=== PATIENT | female | born 1985 | race African-American/Black ===

== ENCOUNTER 2023-06-18 18:35 | Emergency (ER) | payer OTHER, SELFPAY ==
--- NOTE | ~2023-06-18 | US_ITS ---
EXAMINATION: US PELVIS COMPLETE US PELVIS ENDOVAGINAL CLINICAL INFORMATION: Pelvic pain right greater than left COMPARISON: None. TECHNIQUE: Transabdominal and transvaginal images of the pelvis were obtained. FINDINGS: UTERUS: Retroverted and retroflexed Normal size and contour, measuring 7.3 x 3.2 x 4.5 cm (cervix to fundus x AP x transverse). Uniform, homogeneous endometrium measures 0.2 cm in width. RIGHT OVARY: Normal size and echogenicity measuring 2.6 x 1.5 x 2.3 cm, volume 4.7 mL. Vascular flow noted in the right ovary. Multiple follicles noted in the right ovary. LEFT OVARY: Normal size and echogenicity measuring 2.4 x 2.1 x 2.4 cm, volume 6.3 mL. Vascular flow noted in the left ovary. Multiple follicles noted in the left ovary. FREE FLUID: No pelvic free fluid. US/US pelvic and transvaginal IMPRESSION: 1. Bilateral ovarian vascular flow identified. 2. Bilateral ovarian follicles noted.
--- NOTE | ~2023-06-18 | CT_ITS ---
EXAMINATION: CT ABDOMEN AND PELVIS WITHOUT CONTRAST CLINICAL INFORMATION: Right flank pain. COMPARISON: None available. TECHNIQUE: Multidetector volumetric imaging was performed from the superior aspect of the liver through the pubic symphysis. Sagittal and coronal reformatted images were obtained on the technologist's workstation. This CT examination was performed using dose optimization techniques as appropriate, variously including the following: *Automated exposure control *Adjustment of mA and/or kV according to patient size (this includes techniques or standardized protocols for targeted exams where dose is matched to indication/reason for exam; i.e. extremities or head) *Use of iterative reconstruction technique DLP: 490 mGy-cm FINDINGS: LUNG BASES: Minimal dependent atelectasis. LIVER, GALLBLADDER, AND BILIARY TREE: The liver is normal in size, shape, and attenuation. No focal hepatic lesion or biliary ductal dilatation is present. The gallbladder is unremarkable with no evidence of radiopaque gallstones, gallbladder wall thickening, or obvious pericholecystic inflammatory changes. PANCREAS: Unremarkable. SPLEEN: Unremarkable. ADRENAL GLANDS: Unremarkable. KIDNEYS AND URETERS: The kidneys are normal in size. Lobular contours are likely due to lobulation. Multiple parenchymal calcifications in the region of the renal pyramids which raise the possibility of early medullary nephrocalcinosis. A 2 mm nonobstructing calculus is present within the left upper renal pole. A 8 mm cyst is suspected in the anterior cortex of the interpolar region of the right kidney which is too small to characterize. No hydronephrosis or hydroureter. No perinephric stranding. BLADDER: Unremarkable. GASTROINTESTINAL TRACT: Stomach, small bowel, and colon are normal in caliber. There is wall thickening and pericolonic fat stranding at the ascending colon, concerning for colitis. No evidence of perforation. No pneumatosis or intraperitoneal free fluid. The transverse, descending, sigmoid colon are normal in appearance. Appendix appears normal. ABDOMINAL WALL: No hernias. Scar tissue from prior surgeries are noted in the anterior abdominal wall LYMPH NODES: Normal. VASCULAR: Unremarkable. PELVIC VISCERA: The uterus and adnexa are unremarkable. OSSEOUS STRUCTURES: Minimal osteoarthritis in the hips and SI joints. No acute osseous findings. CT/CT abdomen pelvis wo IV con IMPRESSION: 1. Wall thickening and pericolonic fat stranding at the ascending colon, concerning for an acute focal colitis. 2. Numerous small, calcifications of the renal pyramids raising the possibility of early medullary nephrocalcinosis. Nonobstructing renal calculi are also suspected, measuring up to 2 mm in diameter. No evidence of obstructive uropathy. Fleischner guidelines were followed.
[2023-06-18 19:01] VITALS: BP 120/73; PULSE 82; RESP 16; TEMP 36.9; O2SAT 100; BMI 28.3
[2023-06-18 19:25] LABS: MANUAL DIFF FLAG NO
[2023-06-18 19:27] LABS: Basophils Percent Auto 0.4 % (0-2); Eosinophils Absolute Auto 0.4 X10*3/uL (0.0-0.4); Eosinophils Percent Auto 4.4 % (0-4); Hematocrit 39.3 % (37.0-47.0); Hemoglobin 13.2 g/dl (12.0-16.0); Imm Gran Abs Auto 0.02 X10*3/uL (0.00-0.03); Imm Gran Pct Auto 0.2 % (0.0-0.4); Lymphocytes Absolute Auto 1.6 X10*3/uL (1.2-4.9); Lymphocytes Percent Auto 19.9 % (20-40); Mean Corpuscular HGB Conc 33.6 g/dl (31.0-35.0); Mean Corpuscular Hemoglobin 31.1 pg (27.0-33.0); Mean Corpuscular Volume 92.5 fL (80.0-98.0); Mean Platelet Volume 9.7 fL (9.4-12.3); Monocytes Absolute Auto 1.1 X10*3/uL (0.1-1.2); Monocytes Percent Auto 12.9 % (2-11); Neutrophils Absolute Auto 5.1 x10*3/uL (2.0-8.3); Neutrophils Percent Auto 62.2 % (45-73); Platelet Count 297 X10*3/uL (160-400); Red Blood Count 4.25 X10*6/uL (4.20-5.50); Red Cell Distribution Width 12.6 % (11.0-16.0); SCAN SMEAR FLAG 1; White Blood Count 8.2 X10*3/uL (4.8-10.8)
[2023-06-18 19:40] LABS: Alanine Aminotransferase 13 U/L (0-31); Albumin Level 3.9 g/dL (3.5-5.0); Alkaline Phosphatase 63 U/L (39-117); Anion Gap 11 (12-20); Aspartate Amino Transferase 21 U/L (5-31); Bilirubin Total 0.2 mg/dL (0.0-1.0); Blood Urea Nitrogen 10 mg/dL (9-16); Calcium 8.8 mg/dL (8.4-10.2); Carbon Dioxide 24 mmol/L (22-29); Chloride 108 mmol/L (96-108); Creatinine Clr Calc Pharmacy 80.7; Estimated Glomerular Filt Rate > 60; Glucose Random 63 mg/dL (60-115); Lipase 75 U/L (8-78); Potassium 4.4 mmol/L (3.3-5.1); Sodium 139 mmol/L (135-145); Total Protein 7.4 g/dL (6.5-8.0)
[2023-06-18 20:37] LABS: Appearance Urine Clear; Color Urine Yellow; Glucose Urine UA Negative (Negative); Leukocyte Esterase Urine Negative (Negative); Nitrite Urine Negative (Negative); UMIC TRIGGER UACC YES; Urine Blood Moderate (2+) (Negative); Urine Ketones Negative (Negative); Urine Protein Negative (Neg-Trace)
[2023-06-18 20:39] LABS: Bacteria Urine None Seen (None Seen); Hyaline Casts Urine 0-2 /LPF (0-2); Squamous Epithelial Cell Urine 0-2 /HPF (0-2); WBC Urine 0-5 /HPF (0-5)
--- NOTE | 2023-06-18 20:44 | ED_ITS ---
HPI - Abdominal Pain General Chief Complaint: Abdominal Pain Stated Complaint: abdominal pain Time Seen by Provider: 06/18/23 20:40 Source: patient Mode of arrival: ambulatory Limitations: no limitations History of Present Illness HPI narrative: 37 yo female with PMH of , kidney stones, appendectomy notes lower abdominal pain x 2 days with dysuria. She does not get her menses regularly due to implanon. She denies fevers or discharge. She notes this is very different from her kidney stone pain. MD elicited complaint: abdominal pain Pertinent past history: none Onset (ago): day(s) (2) Pain Consistency: intermittent Location: suprapubic Severity: moderate Quality: cramping Radiation: none Migration to: no migration Exacerbating factors: nothing Relieving factors: nothing Associated symptoms: nausea and chills Related Data Previous Rx's Medication Instructions Recorded morphine 15 mg immediate release 15 mg PO TID PRN pain #10 tabs 06/19/23 tablet ondansetron 4 mg disintegrating 4 mg PO Q8H PRN nausea and 06/19/23 tablet vomiting #20 tabs Allergies Allergy/AdvReac Type Severity Reaction Status Date / Time ibuprofen Allergy Unknown Verified 06/18/23 19:01 tramadol Allergy Unknown Verified 06/18/23 19:01 Review of Systems Review of Systems Constitutional : No Weight loss, No Fever, No Chills ENT/Mouth : No sore throat, No Rhinorrhea Eyes: No Swelling, No Redness Cardiovascular : No Chest Pain, No SOB, NoEdema Respiratory : No Cough, No Sputum, No Wheezing Gastrointestinal : Positive Nausea, no Vomiting, no Diarrhea, positive abdominal Pain, No Hematochezia, No Melena Genitourinary : pos Dysuria, No Urinary Frequency, No Hematuria, No Urgency Musculoskeletal : No joint pain, No Myalgias, No Joint Swelling Skin : No Skin Lesions, No rash Neuro : No Weakness, No Numbness, No Dizziness, No Headache Psych : No Anxiety/Panic, No Depression Heme/Lymph: No Bruising, No Lymphadenopathy Endocrine : No Polyuria, No Polydipsia All other systems reviewed and are negative. [facility] Past Medical History Attestation statement: The following information was validated with the patient. Medical History Kidney stones Social History Social History (Updated 06/18/23 @ 22:04 by Emmie Lucas DO) Patient Tobacco Use Status: Never used Tobacco Smoked in Last 30 Days: No Use of substances other than those prescribed or required for medical reasons: No Advance Directives: No Advance Directives Information Provided: No Patient : No Physical Exam ED Vital Signs: Vital Signs - 24 hr 06/18/23 19:01 06/18/23 23:29 Temperature 98.5 F 98.1 F Pulse Rate 82 74 Respiratory Rate 16 18 Blood Pressure 120/73 105/54 L Pulse Oximetry 100 99 Oxygen Delivery Method Room Air Room Air BMI result Body Mass Index 28.3 Appearance: Alert. Oriented X3. No acute distress. Eyes: Pupils equal, round and reactive to light. ENT: Pharynx normal. Neck: Normal inspection. Neck supple. CVS: Normal heart rate and rhythm. Pulses normal. Respiratory: No respiratory distress. Breath sounds normal. Abdomen: Soft and moderate RLQ ttp no rebound Skin: Skin warm and dry. Normal skin color. Normal skin turgor. Extremities: No lower extremity edema. No calf ttp Neuro: Oriented X 3. No motor deficit. No sensory deficit. Course Course Course Narrative: given normal US and reported pain will obtain CT scan for renal colic Reevaluation(s) Reevaluation #1: should be self limiting in healthy patient without fevers or bloody stools Medical Decision Making Medical Decision Making [facility] Narrative: 37 yo female hx of renal colic and prior appendectomy here with c/o lower abdominal pain ttp in RLQ on exam no prior ovarian cysts has some mild loose stool and dysuria at this time no travel or antibiotic use will obtain basic labs, UA and US to evaluate for ovarian cyst if negative will obtain CT scan for renal colic Differential Diagnosis Differential Diagnoses: The differential diagnosis associated with the presentation includes ovarian cyst, renal colic Admission/Observation Consideration of admission/observation: Escalation of care including admission/observation considered no acute findings, stable for DC, not toxic Lab Data [facility] Lab Attestation statement: I reviewed the patient's lab results. 06/18/23 19:20 06/18/23 19:20 Labs: Lab Results 06/18/23 06/18/23 Range/Units 19:20 20:29 WBC 8.2 (4.8-10.8) X10*3/uL RBC 4.25 (4.20-5.50) X10*6/uL Hgb 13.2 (12.0-16.0) g/dl Hct 39.3 (37.0-47.0) % MCV 92.5 (80.0-98.0) fL MCH 31.1 (27.0-33.0) pg MCHC 33.6 (31.0-35.0) g/dl RDW 12.6 (11.0-16.0) % Plt Count 297 (160-400) X10*3/uL MPV 9.7 (9.4-12.3) fL Immature Gran % (Auto) 0.2 (0.0-0.4) % Neut % (Auto) 62.2 (45-73) % Lymph % (Auto) 19.9 L (20-40) % [place] % (Auto) 12.9 H (2-11) % Eos % (Auto) 4.4 H (0-4) % Baso % (Auto) 0.4 (0-2) % Lymph # (Auto) 1.6 (1.2-4.9) X10*3/uL [place] # (Auto) 1.1 (0.1-1.2) X10*3/uL Eos # (Auto) 0.4 (0.0-0.4) X10*3/uL Baso # (Auto) 0.0 (0.0-0.2) X10*3/uL Abs Immat Gran (auto) 0.02 (0.00-0.03) X10*3/uL Absolute Neuts (auto) 5.1 (2.0-8.3) x10*3/uL Absolute Nucleated RBC 0.000 (0.0-0.012) X10*3/uL Nucleated RBC % (auto) 0.0 (0.0-0.2) /100WBC Sodium 139 (135-145) mmol/L Potassium 4.4 (3.3-5.1) mmol/L Chloride 108 (96-108) mmol/L Carbon Dioxide 24 (22-29) mmol/L Anion Gap 11 L (12-20) BUN 10 (9-16) mg/dL Creatinine 0.80 (0.5-1.4) mg/dL Estim Creat Clear Calc 80.7 Estimated GFR > 60 Random Glucose 63 (60-115) mg/dL Calcium 8.8 (8.4-10.2) mg/dL Total Bilirubin 0.2 (0.0-1.0) mg/dL AST 21 (5-31) U/L ALT 13 (0-31) U/L Alkaline Phosphatase 63 (39-117) U/L Total Protein 7.4 (6.5-8.0) g/dL Albumin 3.9 (3.5-5.0) g/dL Lipase 75 (8-78) U/L Urine Color Yellow Urine Appearance Clear Urine pH 6.0 (5.0-9.0) Ur Specific [place] 1.020 (1.005-1.025) Urine Protein Negative (Neg-Trace) mg/dL Urine Glucose (UA) Negative (Negative) mg/dL Urine Ketones Negative (Negative) mg/dL Urine Blood Moderate (2+) H (Negative) Urine Nitrite Negative (Negative) Ur Leukocyte Esterase Negative (Negative) Urine RBC 6-10 H (0-2) /HPF Urine WBC 0-5 (0-5) /HPF Ur Squamous Epith Cells 0-2 (0-2) /HPF Urine Bacteria None Seen (None Seen) Hyaline Casts 0-2 (0-2) /LPF Urine Test NEGATIVE (NEGATIVE) Independent Interpretation I performed an independent interpretation of an: Ultrasound (normal ) and CT Scan (colitis) Radiology Impression Discussion of test interpretation with radiology: I have reviewed the radiologist's reading. Independent Historian Clinical information obtained from an independent historian. History obtained from or confirmed by: Spouse Prescription Management I considered prescription management with: Pain Medication and Other Medications Administered Discontinued Medications Generic Name Dose Route Start Last Admin Trade Name Tiffanie PRN Reason Stop Dose Admin Sodium Chloride 1,000 mls @ 999 mls/hr 06/18/23 21:00 06/18/23 22:46 Ns IV 06/18/23 22:00 Infused .Q1H1M KATHLEEN Infusion Morphine Sulfate 4 mg 06/18/23 20:51 06/18/23 21:41 Morphine Sulfate 4 Mg/Ml Cartridge IVPUSH 06/18/23 20:52 4 mg ONCE ONE Administration Protocol Ondansetron HCl 4 mg 06/18/23 20:51 06/18/23 21:41 Ondansetron Hcl 4 Mg/2 Ml Vial IVPUSH 06/18/23 20:52 4 mg ONCE ONE Administration Discharge Plan Discharge Clinical Impression: Colitis Patient Disposition: Home, Self-Care Instructions: Colitis (ED) Additional Instructions: bland diet and stay hydrated. can take tylenol and motrin for pain as well. return for worsening pain, fevers, more than 6 loose stools a day, blood stools or any other concerns. Prescriptions: New morphine 15 mg tablet 15 mg PO TID PRN (Reason: pain) Qty: 10 0RF Rx Instructions: partial fill okay; Partial Fill upon patient request. ondansetron 4 mg tablet,disintegrating 4 mg PO Q8H PRN (Reason: nausea and vomiting) Qty: 20 0RF Stand Alone Forms: Work/School Release Interventions: ED Discharge Assessment Last Done: 06/19/23 01:12 Discharge Date/Time: 06/19/23 01:15
[2023-06-18 20:45] LABS: UPreg QC Valid YES; Urine Pregnancy NEGATIVE (NEGATIVE)
[2023-06-18] MEDS: Morphine Sulfate 4 MG/ML CARTRIDGE IVPUSH (21:41)
[2023-06-18] MEDS: ondansetron HCL 4 MG/2 ML VIAL IVPUSH (21:41)
[2023-06-18] MEDS: 0.9 % Sodium Chloride 1,000 ML 999 ML IV (21:45)
[2023-06-18 23:29] VITALS: BP 105/54; PULSE 74; RESP 18; TEMP 36.7; O2SAT 99
== END 2023-06-19 01:15 | disposition home or self-care (01) ==
PROVIDERS: Emergency Provider Emergency Medicine
DX: K52.9 Noninfective gastroenteritis and colitis, unspecified (principal); R10.30 Lower abdominal pain, unspecified; R11.2 Nausea with vomiting, unspecified; R10.2 Pelvic and perineal pain; Z79.899 Other long term (current) drug therapy
CPT/HCPCS: 36415; 74176; 76830; 76856; 80053; 81001; 81025; 83690; 85025; 96361; 96374; 96375; 99284; J2270; J2405

== ENCOUNTER 2024-01-02 15:53 | Emergency (ER) | payer OTHER, SELFPAY ==
--- NOTE | ~2024-01-02 | US_ITS ---
EXAMINATION: US PELVIS CLINICAL INFORMATION: Pain. LMP 12/19/2023. COMPARISON: CT abdomen/pelvis and pelvic ultrasound dated 06/18/2023. TECHNIQUE: Ultrasound of the pelvis is performed using both transabdominal and transvaginal transducers along with Doppler. Transvaginal imaging is performed due to inadequate visualization transabdominally. FINDINGS: Uterus: The uterus is retroverted and retroflexed and measures 3.9 x 2.4 x 3.8 cm. The double wall endometrial thickness is 0.2 mm. The uterus is smooth in contour and has normal myometrial echogenicity. No visible fibroid. Adnexa: Both ovaries are visualized. There is normal color flow to the adnexa. There is no ovarian torsion. There is no pelvic ascites or fluid collection. Bilateral ovarian follicles are identified. Right ovary measures 3.4 x 2.6 x 2.4 cm. Volume of 11.1 mL. Left ovary measures 2.5 x 2.5 x 2.3 cm. Volume of 7.5 mm. US/US pelvic and transvaginal IMPRESSION: 1. Sonographically unremarkable uterus and endometrium. 2. Bilateral ovarian follicles. No ovarian torsion.
[2024-01-02 15:55] VITALS: BP 122/70; PULSE 83; RESP 16; TEMP 37; O2SAT 98; BMI 30.4
--- NOTE | 2024-01-02 15:55 | ED.GENADULT ---
HPI - General Adult General Chief complaint: Abdominal Pain Stated complaint: lower abd pain Time Seen by Provider: 01/02/24 23:06 Source: patient Mode of arrival: ambulatory Limitations: no limitations History of Present Illness HPI narrative: 38-year-old female history of asthma, migraines, carpal tunnel syndrome who presents emergency department for evaluation of lower abdominal pain x1 week. The patient states that she has Nexplanon control and usually does not have a menstrual period. She states she started bleeding on 12/19/2023 and describes the menstrual bleeding as spotting and lasted approximately 1 weeks. She states that over the past week she has had lower abdominal pain. She describes the pain is a squeezing pressure-like pain. She states the pain is 9/10 at its worst. She has not noticed a vaginal discharge. She has had dysuria but no frequency. She denied fever, chills, dark stools, bloody stools or diarrhea. She has had nausea with no vomiting. This is her 1st episode of this type of pain. Related Data Previous Rx's ?Medication ?Instructions ?Recorded morphine 15 mg immediate release 15 mg PO TID PRN pain #10 tabs 06/19/23 tablet ondansetron 4 mg disintegrating 4 mg PO Q8H PRN nausea and 06/19/23 tablet vomiting #20 tabs acetaminophen 500 mg tablet 1,000 mg (2 x 500 mg) PO Q6H PRN 01/02/24 (Tylenol Extra Strength) fever or pain #20 tabs doxycycline hyclate 100 mg tablet 100 mg PO Q12H 14 days #28 tabs 01/02/24 metronidazole 500 mg tablet 500 mg PO BID 14 days #28 tabs 01/02/24 oxycodone 5 mg tablet 5 mg PO Q6H PRN pain #10 tabs 01/02/24 Allergies Allergy/AdvReac Type Severity Reaction Status Date / Time ibuprofen Allergy Unknown Verified 01/02/24 15:59 tramadol Allergy Unknown Verified 01/02/24 15:59 Review of Systems Review of Systems: Yes all other systems are reviewed and are negative [facility] Past Medical History [facility] Narrative: Social history: She denies tobacco use. She occasionally drinks alcohol. She 3 times a day. Medical History Kidney stones Social History Social History (Updated 06/18/23 @ 22:04 by Emmie Lucas DO) Patient Tobacco Use Status: Never used Tobacco Advance Directives: No Advance Directives Information Provided: No Physical Exam ED Vital Signs: Vital Signs - 24 hr 01/02/24 15:55 Temperature 98.6 F Pulse Rate 83 Respiratory Rate 16 Blood Pressure 122/70 Pulse Oximetry 98 Oxygen Delivery Method Room Air BMI result Body Mass Index 30.4 Vital signs were normal Exam: General: Awake, alert in no distress Head: Normocephalic, atraumatic EENT: PERRL, Lids normal, sclera normal, conjunctiva normal, nose normal , ears normal, throat without erythema or exudates Neck: Supple, no adenopathy Lung: breath sounds symmetric, no wheezing, rales or rhonchi Chest: symmetric movement, nontender Heart: regular rate and rhythm, normal S1, S2 no murmurs or rubs Abdomen: soft, moderate lower abdominal tenderness, nondistended, normal bowel sounds : External: Normal Speculum: Patient has a grayish cervical discharge, cervical os is closed Bimanual: Moderate to severe cervical motion tenderness, moderate adnexal and uterine tenderness Back: no vertebral tenderness, no CVAT Extremities: no deformities, moves all extremities symmetrically Neuro: Awake, alert, oriented, normal speech, cranial nerves intact, moves all extremities symmetrically Psych: Pleasant, cooperative Course Course Course Narrative: RME- 38 year old female presents for evaluation of lower abdominal pain and pain with urination. She reports irregular menses. Plan for labs, UA, Medical Decision Making Medical Decision Making MDM Narrative: 38-year-old female history of asthma, migraines, carpal tunnel syndrome who presents emergency department for evaluation of lower abdominal pain x1 week. The patient states that she has Nexplanon control and usually does not have a menstrual period but noted, vaginal spotting/ bleeding on 12/19/2023 which lasted approximately 1 weeks. The pain is a constant, squeezing like pain which is 9/10, she has dysuria and nausea associated with the pain, she denied fever, chills, vaginal discharge. Vital signs were normal. Abdominal exam revealed lower abdominal tenderness, exam revealed grayish cervical discharge, moderate adnexal and uterine tenderness, moderate to severe cervical motion tenderness. Differential diagnosis: ?Includes but is not limited to ovarian cyst, ovarian torsion, appendicitis, pancreatitis, anemia, electrolyte abnormalities Following evaluation was ordered: CBC, BMP, quantitative beta-hCG, urinalysis, chlamydia and gonorrhea by PCR from urine sample, Doppler ultrasound ovaries Patient was initially treated with the following: Ceftriaxone/lidocaine 500 mg IM, doxycycline 100 mg orally, metronidazole 100 mg orally Course: 23:53 My interpretation patient's laboratory evaluation is as follows: CBC was normal. BNP was normal. Urinalysis was positive for blood. Microscopic revealed 3-5 RBCs, 0-5 WBCs, no bacteria. Quantitative beta-hCG was below detectable limits. Patient's Doppler ultrasound was unremarkable with no acute findings to describe the patient's pain, there was no evidence for torsion. Patient's physical examination however is consistent with pelvic inflammatory disease and I did discuss this with the patient. She was prescribed doxycycline 100 mg q.12 hours times 14 days, metronidazole 500 mg q.12 hours times 14 days, Tylenol 1000 mg every 6 hours as needed for pain and oxycodone 5 mg every 6 hours as needed for pain. Patient was referred to our machine setter and repairer, Dr. Alex vann for follow-up in Admission/Observation Consideration of admission/observation: Escalation of care including admission/observation considered Lab Data [facility] Lab Attestation statement: I reviewed the patient's lab results. 01/02/24 16:08 01/02/24 16:08 Labs: Lab Results 01/02/24 01/02/24 Range/Units 16:08 16:10 WBC 5.7 (4.8-10.8) X10*3/uL RBC 4.10 L (4.20-5.50) X10*6/uL Hgb 12.7 (12.0-16.0) g/dl Hct 38.6 (37.0-47.0) % MCV 94.1 (80.0-98.0) fL MCH 31.0 (27.0-33.0) pg MCHC 32.9 (31.0-35.0) g/dl RDW 13.2 (11.0-16.0) % Plt Count 269 (160-400) X10*3/uL MPV 10.2 (9.4-12.3) fL Immature Gran % (Auto) 0.2 (0.0-0.4) % Neut % (Auto) 45.9 (45-73) % Lymph % (Auto) 28.8 (20-40) % [place] % (Auto) 17.0 H (2-11) % Eos % (Auto) 7.2 H (0-4) % Baso % (Auto) 0.9 (0-2) % Lymph # (Auto) 1.6 (1.2-4.9) X10*3/uL [place] # (Auto) 1.0 (0.1-1.2) X10*3/uL Eos # (Auto) 0.4 (0.0-0.4) X10*3/uL Baso # (Auto) 0.1 (0.0-0.2) X10*3/uL Abs Immat Gran (auto) 0.01 (0.00-0.03) X10*3/uL Absolute Neuts (auto) 2.6 (2.0-8.3) x10*3/uL Absolute Nucleated RBC 0.000 (0.0-0.012) X10*3/uL Nucleated RBC % (auto) 0.0 (0.0-0.2) /100WBC Sodium 139 (135-145) mmol/L Potassium 3.9 (3.3-5.1) mmol/L Chloride 109 H (96-108) mmol/L Carbon Dioxide 24 (22-29) mmol/L Anion Gap 10 L (12-20) BUN 13 (9-16) mg/dL Creatinine 0.73 (0.5-1.4) mg/dL Estim Creat Clear Calc 90.6 Estimated GFR > 60 Random Glucose 81 (60-115) mg/dL Calcium 9.3 (8.4-10.2) mg/dL Beta HCG, Quant < 2 mIU/mL Urine Color Yellow Urine Appearance Clear Urine pH 5.5 (5.0-9.0) Ur Specific [place] 1.025 (1.005-1.025) Urine Protein Negative (Neg-Trace) mg/dL Urine Glucose (UA) Negative (Negative) mg/dL Urine Ketones Negative (Negative) mg/dL Urine Blood Moderate (2+) H (Negative) Urine Nitrite Negative (Negative) Ur Leukocyte Esterase Negative (Negative) Urine RBC 3-5 H (0-2) /HPF Urine WBC 0-5 (0-5) /HPF Ur Squamous Epith Cells 0-2 (0-2) /HPF Urine Bacteria None Seen (None Seen) Hyaline Casts 0-2 (0-2) /LPF Radiology Impression Discussion of test interpretation with radiology: I have reviewed the radiologist's reading. Radiologist Impression: EXAMINATION: US PELVIS FINDINGS: Uterus: The uterus is retroverted and retroflexed and measures 3.9 x 2.4 x 3.8 cm. The double wall endometrial thickness is 0.2 mm. The uterus is smooth in contour and has normal myometrial echogenicity. No visible fibroid. Adnexa: Both ovaries are visualized. There is normal color flow to the adnexa. There is no ovarian torsion. There is no pelvic ascites or fluid collection. Bilateral ovarian follicles are identified. Right ovary measures 3.4 x 2.6 x 2.4 cm. Volume of 11.1 mL. Left ovary measures 2.5 x 2.5 x 2.3 cm. Volume of 7.5 mm. IMPRESSION: 1. Sonographically unremarkable uterus and endometrium. 2. Bilateral ovarian follicles. No ovarian torsion. Dictated By: Edil Webb MD Independent Historian Clinical information obtained from an independent historian. History obtained from or confirmed by: Spouse Prescription Management I considered prescription management with: Pain Medication and Antibiotic Chronic Conditions Patient?s care impacted by: Other (Asthma) Discharge Plan Discharge Clinical Impression: Acute pelvic inflammatory disease (PID) Patient Disposition: Home, Self-Care Additional Instructions: Pelvic inflammatory disease instructions: Your presentation and physical findings are consistent with pelvic inflammatory disease (PID). Approximately 30% of the time, pelvic inflammatory disease is caused by sexually transmitted diseases such as Trichomonas, gonorrhea or chlamydia. Approximately 70% of the time, pelvic inflammatory disease is caused by abnormal bacteria (anaerobic bacteria) in your vagina that can cause an infection ? Medications You received ceftriaxone 500 mg intramuscularly here in the emergency department Take doxycycline 100 mg, 1 pill twice a day for 14 days. Take metronidazole 500 mg, 1 pill twice a day for 14 days. These 3 antibiotics treat sexually transmitted diseases such as gonorrhea, chlamydia and Trichomonas as well as anaerobic bacteria that can cause pelvic inflammatory disease. Take Tylenol (acetaminophen) 500 mg pills, 2 pills every 6 hours as needed for pain. For pain not relieved by Tylenol take oxycodone 5 mg pills, 1 pill every 4 hours as needed for pain. Do not drive or work while taking this medication since they can cause sleepiness. Oxycodone is a narcotic medication that can be addicting. If you are concerned about addiction you can ask the pharmacist for less pills or do not get this prescription filled. Follow-Up Follow-up with our gynecology in ?10-14 days. Pending laboratory tests: The machine setter and repairer ?will need to review the following results with you: Gonorrhea and chlamydia (urine sample) Return precautions: Please return to the emergency department if your symptoms get worse if your pain does not go away in 24-48 hours or if you develop any symptoms that are concerning to you. Prescriptions: New metronidazole 500 mg tablet 500 mg PO BID 14 Days Qty: 28 0RF doxycycline hyclate 100 mg tablet 100 mg PO Q12H 14 Days Qty: 28 0RF oxycodone 5 mg tablet 5 mg PO Q6H PRN (Reason: pain) Qty: 10 0RF Rx Instructions: Patient may request partial refill; Partial Fill upon patient request. acetaminophen [Tylenol Extra Strength] 500 mg tablet 1,000 mg PO Q6H PRN (Reason: fever or pain) Qty: 20 0RF No Action morphine 15 mg tablet 15 mg PO TID PRN (Reason: pain) Qty: 10 0RF Rx Instructions: partial fill okay; Partial Fill upon patient request. ondansetron 4 mg tablet,disintegrating 4 mg PO Q8H PRN (Reason: nausea and vomiting) Qty: 20 0RF Referrals: Luis Johnson MD [Physician] - 2 weeks (Pelvic inflammatory disease) Print Language: Yoruba
[2024-01-02 16:17] LABS: MANUAL DIFF FLAG NO
[2024-01-02 16:20] LABS: Basophils Absolute Auto 0.1 X10*3/uL (0.0-0.2); Basophils Percent Auto 0.9 % (0-2); Eosinophils Absolute Auto 0.4 X10*3/uL (0.0-0.4); Eosinophils Percent Auto 7.2 % (0-4); Hematocrit 38.6 % (37.0-47.0); Hemoglobin 12.7 g/dl (12.0-16.0); Imm Gran Abs Auto 0.01 X10*3/uL (0.00-0.03); Imm Gran Pct Auto 0.2 % (0.0-0.4); Lymphocytes Absolute Auto 1.6 X10*3/uL (1.2-4.9); Lymphocytes Percent Auto 28.8 % (20-40); Mean Corpuscular HGB Conc 32.9 g/dl (31.0-35.0); Mean Corpuscular Volume 94.1 fL (80.0-98.0); Mean Platelet Volume 10.2 fL (9.4-12.3); Neutrophils Absolute Auto 2.6 x10*3/uL (2.0-8.3); Neutrophils Percent Auto 45.9 % (45-73); Platelet Count 269 X10*3/uL (160-400); Red Cell Distribution Width 13.2 % (11.0-16.0); White Blood Count 5.7 X10*3/uL (4.8-10.8)
[2024-01-02 16:29] LABS: Appearance Urine Clear; Color Urine Yellow; Glucose Urine UA Negative (Negative); Leukocyte Esterase Urine Negative (Negative); Nitrite Urine Negative (Negative); PH 5.5 (5.0-9.0); Specific Gravity - Urine 1.025 (1.005-1.025); UMIC TRIGGER UACC YES; Urine Blood Moderate (2+) (Negative); Urine Ketones Negative (Negative); Urine Protein Negative (Neg-Trace)
[2024-01-02 16:37] LABS: Anion Gap 10 (12-20); Blood Urea Nitrogen 13 mg/dL (9-16); Calcium 9.3 mg/dL (8.4-10.2); Carbon Dioxide 24 mmol/L (22-29); Chloride 109 mmol/L (96-108); Creatinine Clr Calc Pharmacy 90.6; Estimated Glomerular Filt Rate > 60; Glucose Random 81 mg/dL (60-115); Potassium 3.9 mmol/L (3.3-5.1); Sodium 139 mmol/L (135-145)
[2024-01-02 16:40] LABS: HCG Quantitative < 2 mIU/mL
[2024-01-02 17:03] LABS: Bacteria Urine None Seen (None Seen); Hyaline Casts Urine 0-2 /LPF (0-2); Squamous Epithelial Cell Urine 0-2 /HPF (0-2); WBC Urine 0-5 /HPF (0-5)
[2024-01-02] MEDS: metroNIDAZOLE 500 MG TABLET PO (23:59)
[2024-01-02] MEDS: Doxycycline Monohydrate 100 MG CAPSULE PO (23:59)
[2024-01-03] MEDS: cefTRIAXone sodium 500 MG, Lidocaine HCl 1 % MPF 1 ML IM
[2024-01-03 00:05] VITALS: BP 158/89; PULSE 61; RESP 16; TEMP 36.7; O2SAT 98
[2024-01-03 01:29] LABS: CT PCR NOT DETECTED (Not Detect.); NG PCR NOT DETECTED (Not Detect.)
== END 2024-01-03 00:07 | disposition home or self-care (01) ==
PROVIDERS: Physician Assistant; Emergency Provider Emergency Medicine Emergency Medical Services
DX: N73.0 Acute parametritis and pelvic cellulitis (principal)
CPT/HCPCS: 0353U; 36415; 76830; 76856; 80048; 81001; 84702; 85025; 96372; 99282; 99284; J0696

== ENCOUNTER 2024-01-12 11:13 | Outpatient (REF) | payer OTHER, MEDICAID, SELFPAY ==
[2024-01-13 06:56] LABS: CT PCR NOT DETECTED (Not Detect.); NG PCR NOT DETECTED (Not Detect.)
[2024-01-14 11:42] LABS: BV Int Neg Control Negative (Negative); BV Int Pos Control Positive (Positive)
== END 2024-01-12 11:14 | disposition home or self-care (01) ==
LOC: HO.LNP 11:13
PROVIDERS: Visit Provider Advanced Practice Midwife
DX: N20.0 Calculus of kidney (principal); R10.2 Pelvic and perineal pain; Z98.890 Other specified postprocedural states; Z87.442 Personal history of urinary calculi
CPT/HCPCS: 0353U; 87086; 87480; 87510; 87660

== ENCOUNTER 2024-01-12 11:13 | Outpatient (AMB) | payer OTHER, MEDICAID, SELFPAY ==
[2024-01-12 11:14] VITALS: BP 140/90; BMI 29.5
--- NOTE | 2024-01-12 11:14 | A.OFFVIS_ITS ---
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 (Xiomara) Allergies ibuprofen Allergy (Verified 01/12/24 11:16) Unknown tramadol Allergy (Verified 01/12/24 11:16) Unknown Medication List - Last Reconciled 01/12/24 by Emma Lorenz CNM acetaminophen (Tylenol Extra Strength) 1,000 mg (2 x 500 mg) PO Q6H PRN doxycycline hyclate 100 mg PO Q12H 14 days escitalopram oxalate 5 mg PO DAILY etonogestrel (Nexplanon) subdermal metronidazole 500 mg PO BID 14 days ondansetron 4 mg PO Q8H PRN oxycodone 5 mg PO Q6H PRN Is last menstrual period known: Yes Last menstrual period: 12/19/23 Post menopausal: No HPI HPI ER follow up: Details: Patient is here as an ER follow-up patient previously lived in [place] and in [place] just moved here within the last year has history of 5 C sections has a history of kidney stones for which she had surgery 4 times. Says she was being worked up for colitis but that was in [place] and or [place]. Says she has been having trouble getting to a primary care provider here she went to the ER a couple of weeks ago because she had some bleeding and she had severe pain. They worked her up and she had a negative ultrasound and negative urinalysis negative blood work and treated her presumptively as pelvic inflammatory disease. She says the pain is a little bit better but not much. She is still on the antibiotics and she is going to be finishing them soon. She is taking them all. She has no abnormal discharge. [facility] Medical History (Updated 01/12/24 @ 12:03 by Emma Lorenz CNM) Hx of tendinitis H/O nephrolithotomy with removal of calculi Kidney stones Surgical History (Updated 01/12/24 @ 11:21 by RODRIGUEZ Gunn) Hx of wisdom tooth extraction History of carpal tunnel repair Hx of appendectomy Hx of section Social History (Updated 01/12/24 @ 11:21 by VICKY Gunn Patient Tobacco Use Status: Never used Tobacco Use of substances other than those prescribed or required for medical reasons: Yes Substance Use Type: Marijuana Female Reproductive History Menstrual Age of Menarche: 8 Duration of menses: other Date of last menstrual period: 12/19/23 control method: implanted Total pregnancies: 5 Full term: 5 Number of Living Children: 5 Physical Exam Vital Signs: Last Vital Signs BP 140/90 H 01/12/24 11:14 BMI result Body Mass Index 29.5 Other: Of note patient has extremely tense muscle tone and was actively pushing the speculum out however mucosa was pink and normal healthy appearing normal scant white mucus cervix nulliparous (had 5 C sections) uterus small midposition nontender adnexa nontender patient does have scar from 5 C-sections. Extremely tight muscle tone both with and without Kegel. External Female Exam: normal external appearance Speculum Exam - Vagina: normal appearance of the vagina and normal vaginal discharge Speculum Exam - Cervix: normal appearance of the cervix Bimanual exam- vagina & uterus: normal bimanual exam, uterine size normal, consistency normal, uterine mobility normal, uterine shape normal and non-tender Bimanual Exam- Adnexa, other: normal adnexae, no masses and No adnexal tenderness Results Reviewed Results Reviewed: [place] [address] Ultrasound Report Signed Patient: Belle Kc MR#: [id number] : 1985 Acct:[id number] Age/Sex: 38 / F ADM Date: 01/02/24 Loc: HO.ED Attending Dr: Ordering Physician: Isai Pizano Date of Service: 01/02/24 Procedure(s): US pelvic and transvaginal Accession Number(s): [id number] cc: Isai Pizano ; Physician,Unknown ~ EXAMINATION: US PELVIS CLINICAL INFORMATION: Pain. LMP 12/19/2023. COMPARISON: CT abdomen/pelvis and pelvic ultrasound dated 06/18/2023. TECHNIQUE: Ultrasound of the pelvis is performed using both transabdominal and transvaginal transducers along with Doppler. Transvaginal imaging is performed due to inadequate visualization transabdominally. FINDINGS: Uterus: The uterus is retroverted and retroflexed and measures 3.9 x 2.4 x 3.8 cm. The double wall endometrial thickness is 0.2 mm. The uterus is smooth in contour and has normal myometrial echogenicity. No visible fibroid. Adnexa: Both ovaries are visualized. There is normal color flow to the adnexa. There is no ovarian torsion. There is no pelvic ascites or fluid collection. Bilateral ovarian follicles are identified. Right ovary measures 3.4 x 2.6 x 2.4 cm. Volume of 11.1 mL. Left ovary measures 2.5 x 2.5 x 2.3 cm. Volume of 7.5 mm. US/US pelvic and transvaginal IMPRESSION: 1. Sonographically unremarkable uterus and endometrium. 2. Bilateral ovarian follicles. No ovarian torsion. 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 Code(s): R10.2 - Pelvic and perineal pain Category: Medical Plan Patient is here as an ER follow-up patient previously lived in [place] and in [place] just moved here within the last year has history of 5 C sections has a history of kidney stones for which she had surgery 4 times. Says she was being worked up for colitis but that was in [place] and or [place]. Says she has been having trouble getting to a primary care provider here she went to the ER a couple of weeks ago because she had some bleeding and she had severe pain. They worked her up and she had a negative ultrasound and negative urinalysis negative blood work and treated her presumptively as pelvic inflammatory disease. She says the pain is a little bit better but not much. She is still on the antibiotics and she is going to be finishing them soon. She is taking them all. She has no abnormal discharge. Her exam was essentially benign today though she has extremely tense muscle tone with her mucosa was pink and healthy no point tenderness could be palpated on exam she also had negative CVAT patient does report some tenderness on her right side but it was not corresponded to the exam. Will send for Urology referral and patient to continue to seek primary care. I recommended the patient take probiotics or yeast yogurt with active cultures while taking the antibiotics. She said that there was a question of colitis in the past but that workup was in [place]. Orders: Orders Bacterial Vaginosis Panel Today R10.2 - Pelvic and perineal pain CT NG by PCR Today R10.2 - Pelvic and perineal pain Referrals Urology Referral N20.0 - Calculus of kidney, R10.2 - Pelvic and perineal pain, Z87.442 - Personal history of urinary calculi, Z98.890 - Other specified postprocedural states Medications: Discontinued morphine partial fill okay; Partial Fill upon patient request. Discontinued Reason: Patient no longer taking 15 mg PO TID PRN 10 tabs 0RF pain Coding Level of Care Code New Pt Level 4 (60784) Diagnoses Kidney stones N20.0 H/O nephrolithotomy with removal of calculi Z98.890; Z87.442 Pelvic pain R10.2
== END 2024-01-12 12:36 | disposition home or self-care (01) ==
PROVIDERS: Visit Provider Advanced Practice Midwife
DX: N20.0 Calculus of kidney (principal); Z98.890 Other specified postprocedural states; Z87.442 Personal history of urinary calculi; R10.2 Pelvic and perineal pain
CPT/HCPCS: 99204

== ENCOUNTER 2024-03-11 14:40 | Outpatient (AMB) | payer OTHER, MEDICAID, SELFPAY ==
--- NOTE | 2024-03-11 14:45 | A.OFFVIS_ITS ---
Intake Visit Reasons: history of kidney stones Intake Note: New patient is present for History of Kidney stones Antibiotic Allergies:None Blood Thinner: None Patient states she had past procedures for Kidney stones. She seen urologist here in [place] many years ago. Previously Urologist . While Patient was in [place] she stated she had a procedure performed for her stones and was not pleased with results. Patient reports that she does have history of recurrent UTI and Kidney infections. 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 She was seen in the emergency room for abdominal pain. She has a history of kidney stones, she states she has had prior kidney stone procedures. She describes 2 procedures where a stent was placed and the most recent 1 was the shockwave lithotripsy. The patient states she has been instructed to drink a lot of water add lemon to her fluids and avoid green leafy vegetables as well as limited use of red meat. She states her 1st kidney stone was at age 15. She also has had frequent UTIs however the last UTI she had was about a year ago. In review of her chart a CT abdomen and pelvis performed 06/18/2023 noted bilateral parenchymal calcifications, nephrocalcinosis- suggestive of medullary sponge kidney. I have discussed checking a 24 hour urine collection and repeat CT KUB. Will prescribed vitamin B6 daily PFSH Medical History Hx of tendinitis H/O nephrolithotomy with removal of calculi Kidney stones Surgical History Hx of wisdom tooth extraction History of carpal tunnel repair Hx of appendectomy Hx of section Social History Patient Tobacco Use Status: Never used Tobacco Substance Use Type: Marijuana Female Reproductive History Menstrual Age of Menarche: 8 Review of Systems Const All systems reviewed & are unremarkable except as noted in HPI and below Reports no additional complaints Eyes Reports no additional complaints ENT Reports no additional complaints Card Reports no additional complaints Resp Reports no additional complaints GI Reports no additional complaints Reports as per HPI Musc Reports no additional complaints Skin/Breast Reports system reviewed and no additional complaints, except as documented Neuro Reports no additional complaints Psych Reports no additional complaints Endo Reports no additional complaints Naeem/Lymph Reports no additional complaints Aller/Immun Reports no additional complaints Physical Exam Const General: cooperative, healthy appearing and no acute distress Orientation/consciousness: patient oriented x3 HEENT Head: Yes normal to inspection, Yes normocephalic and Yes atraumatic Eyes Conjunctivae: conjunctivae normal Neck Neck: Yes normal visual inspection and Yes trachea midline Chest Chest palpation & inspection: normal inspection of the chest Resp Effort & Inspection: normal respiratory effort Cardio Rate: regular rate GI Inspection: Yes normal to inspection Skin General skin exam: no rashes or lesions noted Neuro General: patient oriented x3 Extrem General: No edema Psych Appearance: grossly normal Office Procedures Post Void Residual Post Residual Void Post Void Residual (PVR): 0 [id number] Void Residual by ultrasound Results AMB Urinalysis, Automated UA Leukoctes 0 Rodger/uL Last Edit by RODRIGUEZ Castillo on 03/11/24 15:04 UA Nitrite Negative Last Edit by Mireya Judge [facility] on 03/11/24 15:04 UA Urobilinogen 0.2 mg/dL Last Edit by Mireya Judge Stacie on 03/11/24 15:0 4 UA Protein 15 mg/dL Last Edit by Mireya Judge [facility] on 03/11/24 15:04 UA pH 5.5 Last Edit by Mireya Judge Stacie on 03/11/24 15:04 UA Blood 200 Alphonso/uL Last Edit by Mireya Judge Stacie on 03/11/24 15:04 UA Specific [place] 1.020 Last Edit by Mireya Judge [facility] on 03/11/24 15: 04 UA Ketone Negative Last Edit by Mireya Judge [facility] on 03/11/24 15:04 UA Bilirubin 0 mg/dL Last Edit by RODRIGUEZ Castillo on 03/11/24 15:04 UA Glucose 0 mg/dL Last Edit by RODRIGUEZ Castillo on 03/11/24 15:04 Results Reviewed Results Reviewed: Laboratory Last Values Urine pH (Auto) 5.5 03/11/24 15:03 Specific [place] (Auto) 1.020 03/11/24 15:03 Urine Protein (Auto) 15 mg/dL 03/11/24 15:03 Glucose (UA)(Auto) 0 mg/dL 03/11/24 15:03 Urine Ketones (Auto) Negative 03/11/24 15:03 Urine Blood (Auto) 200 Alphonso/uL 03/11/24 15:03 Urine Nitrite (Auto) Negative 03/11/24 15:03 Urine Bilirubin (Auto) 0 mg/dL 03/11/24 15:03 Urine Urobilinogen (Auto) 0.2 mg/dL 03/11/24 15:03 Leukocyte Esterase (Auto) 0 Rodger/uL 03/11/24 15:03 Date of Service: 06/18/23 CT ABDOMEN AND PELVIS WITHOUT CONTRAST CLINICAL INFORMATION: Right flank pain. COMPARISON: None available. TECHNIQUE: Multidetector volumetric imaging was performed from the superior aspect of the liver through the pubic symphysis. Sagittal and coronal reformatted images were obtained on the technologist's workstation. This CT examination was performed using dose optimization techniques as appropriate, variously including the following: *Automated exposure control *Adjustment of mA and/or kV according to patient size (this includes techniques or standardized protocols for targeted exams where dose is matched to indication/reason for exam; i.e. extremities or head) *Use of iterative reconstruction technique DLP: 490 mGy-cm FINDINGS: LUNG BASES: Minimal dependent atelectasis. LIVER, GALLBLADDER, AND BILIARY TREE: The liver is normal in size, shape, and attenuation. No focal hepatic lesion or biliary ductal dilatation is present. The gallbladder is unremarkable with no evidence of radiopaque gallstones, gallbladder wall thickening, or obvious pericholecystic inflammatory changes. PANCREAS: Unremarkable. SPLEEN: Unremarkable. ADRENAL GLANDS: Unremarkable. KIDNEYS AND URETERS: The kidneys are normal in size. Lobular contours are likely due to lobulation. Multiple parenchymal calcifications in the region of the renal pyramids which raise the possibility of early medullary nephrocalcinosis. A 2 mm nonobstructing calculus is present within the left upper renal pole. A 8 mm cyst is suspected in the anterior cortex of the interpolar region of the right kidney which is too small to characterize. No hydronephrosis or hydroureter. No perinephric stranding. BLADDER: Unremarkable. GASTROINTESTINAL TRACT: Stomach, small bowel, and colon are normal in caliber. There is wall thickening and pericolonic fat stranding at the ascending colon, concerning for colitis. No evidence of perforation. No pneumatosis or intraperitoneal free fluid. The transverse, descending, sigmoid colon are normal in appearance. Appendix appears normal. ABDOMINAL WALL: No hernias. Scar tissue from prior surgeries are noted in the anterior abdominal wall LYMPH NODES: Normal. VASCULAR: Unremarkable. PELVIC VISCERA: The uterus and adnexa are unremarkable. OSSEOUS STRUCTURES: Minimal osteoarthritis in the hips and SI joints. No acute osseous findings. IMPRESSION: 1. Wall thickening and pericolonic fat stranding at the ascending colon, concerning for an acute focal colitis. 2. Numerous small, calcifications of the renal pyramids raising the possibility of early medullary nephrocalcinosis. Nonobstructing renal calculi are also suspected, measuring up to 2 mm in diameter. No evidence of obstructive uropathy. 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 I have discussed checking a 24 hour urine collection and repeat CT KUB. Vitamin B6 daily Orders: Orders AMB Urinalysis Automated Today Roberto Carlos Mari MD Z13.9 - Encounter for screening, unspecified AMB Post Void Residual by ultrasound Today Roberto Carlos Mari MD R10.2 - Pelvic and perineal pain CT abdomen pelvis wo IV con Today Rafat Diaz MD E83.59 - Other disorders of calcium metabolism, N29 - Other disorders of kidney and ureter in diseases classified elsewhere, R10.9 - Unspecified abdominal pain Medications: New pyridoxine (vitamin B6) 100 mg PO DAILY 90 tabs 3RF Rafat Diaz MD Patient Instructions: The patient had an opportunity to ask questions regarding treatment plan. The patient expressed understanding and agreement with the above treatment plan. The patient is aware they should contact our office by phone for worsening of their current condition or the appearance of new symptoms. Compliance is encouraged with any medications and followup testing that is ordered. It is a privilege to be allowed the opportunity to participate in the urologic care of your patient. If you have any questions or concerns regarding treatment for the above conditions please do not hesitate to contact me. The office t elephone contact is [phone]. This note is constructed in part using voice recognition software. While every effort has been made to ensure accuracy sap bw architect errors may have been included. Yours sincerely, Rafat Diaz MD Coding Level of Care Code New Pt Level 4 (91072) Diagnoses Kidney stones N20.0 Nephrocalcinosis E83.59; N29 Abdominal pain R10.9 CPT Codes Post Residual Void - PVR CPT Code: 81911-Nfdh Void Residual by ultrasound ([id number])
== END 2024-03-11 15:41 | disposition home or self-care (01) ==
PROVIDERS: Visit Provider Urology
DX: N20.0 Calculus of kidney (principal); E83.59 Other disorders of calcium metabolism; N29 Other disorders of kidney and ureter in diseases classified elsewhere; R10.9 Unspecified abdominal pain; Z13.9 Encounter for screening, unspecified
CPT/HCPCS: 99204

== ENCOUNTER → 2024-03-11 14:40 | Outpatient (BNVA) | payer OTHER, MEDICAID, SELFPAY | PROVIDERS: Visit Provider Urology | DX: N20.0 Calculus of kidney (principal) | CPT/HCPCS: 51798; 81003 ==

== ENCOUNTER 2024-07-12 14:00 | Outpatient (AMB) | payer OTHER, MEDICAID, SELFPAY ==
--- NOTE | 2024-07-12 14:01 | A.OFFVIS_ITS ---
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 She was seen in the emergency room for abdominal pain. She has a history of kidney stones, she states she has had prior kidney stone procedures. She describes 2 procedures where a stent was placed and the most recent 1 was the shockwave lithotripsy. The patient states she has been instructed to drink a lot of water add lemon to her fluids and avoid green leafy vegetables as well as limited use of red meat. She states her 1st kidney stone was at age 15. She also has had frequent UTIs however the last UTI she had was about a year ago. In review of her chart a CT abdomen and pelvis performed 06/18/2023 noted bilateral parenchymal calcifications, nephrocalcinosis- suggestive of medullary sponge kidney. I have discussed checking a 24 hour urine collection and repeat CT KUB. Will prescribed vitamin B6 daily PFSH Medical History Hx of tendinitis H/O nephrolithotomy with removal of calculi Kidney stones Surgical History Hx of wisdom tooth extraction History of carpal tunnel repair Hx of appendectomy Hx of section Social History Patient Tobacco Use Status: Never used Tobacco Substance Use Type: Marijuana Female Reproductive History Menstrual Age of Menarche: 8 Review of Systems Const All systems reviewed & are unremarkable except as noted in HPI and below Reports no additional complaints Eyes Reports no additional complaints ENT Reports no additional complaints Card Reports no additional complaints Resp Reports no additional complaints GI Reports no additional complaints Reports as per HPI Musc Reports no additional complaints Skin/Breast Reports system reviewed and no additional complaints, except as documented Neuro Reports no additional complaints Psych Reports no additional complaints Endo Reports no additional complaints Naeem/Lymph Reports no additional complaints Aller/Immun Reports no additional complaints Results AMB Urinalysis, Automated UA Leukoctes 0 Rodger/uL Last Edit by JEREMY Holloway on 07/12/24 14:10 UA Nitrite Negative Last Edit by Gurinder Jordan [facility] on 07/12/24 14:10 UA Urobilinogen 0.2 mg/dL Last Edit by Gurinder Jordan [facility] on 07/12/24 14:1 0 UA Protein 0 mg/dL Last Edit by Gurinder Jordan [facility] on 07/12/24 14:10 UA pH 6.5 Last Edit by Gurinder Jordan [facility] on 07/12/24 14:10 UA Blood 200 Alphonso/uL Last Edit by Gurinder Jordan [facility] on 07/12/24 14:10 UA Specific [place] 1.005 Last Edit by Gurinder Jordan [facility] on 07/12/24 14: 10 UA Ketone Negative Last Edit by Gurinder Jordan [facility] on 07/12/24 14:10 UA Bilirubin 0 mg/dL Last Edit by Gurinder Jordan [facility] on 07/12/24 14:10 UA Glucose 0 mg/dL Last Edit by Gurinder Jordan [facility] on 07/12/24 14:10 Results Reviewed Results Reviewed: Laboratory Last Values Urine pH (Auto) 6.5 07/12/24 14:09 Specific [place] (Auto) 1.005 07/12/24 14:09 Urine Protein (Auto) 0 mg/dL 07/12/24 14:09 Glucose (UA)(Auto) 0 mg/dL 07/12/24 14:09 Urine Ketones (Auto) Negative 07/12/24 14:09 Urine Blood (Auto) 200 Alphonso/uL 07/12/24 14:09 Urine Nitrite (Auto) Negative 07/12/24 14:09 Urine Bilirubin (Auto) 0 mg/dL 07/12/24 14:09 Urine Urobilinogen (Auto) 0.2 mg/dL 07/12/24 14:09 Leukocyte Esterase (Auto) 0 Rodger/uL 07/12/24 14:09 Date of Service: 10/01/23 CT ABDOMEN AND PELVIS WITHOUT CONTRAST CLINICAL INFORMATION: Right flank pain. COMPARISON: None available. TECHNIQUE: Multidetector volumetric imaging was performed from the superior aspect of the liver through the pubic symphysis. Sagittal and coronal reformatted images were obtained on the technologist's workstation. This CT examination was performed using dose optimization techniques as appropriate, variously including the following: *Automated exposure control *Adjustment of mA and/or kV according to patient size (this includes techniques or standardized protocols for targeted exams where dose is matched to indication/reason for exam; i.e. extremities or head) *Use of iterative reconstruction technique DLP: 490 mGy-cm FINDINGS: LUNG BASES: Minimal dependent atelectasis. LIVER, GALLBLADDER, AND BILIARY TREE: The liver is normal in size, shape, and attenuation. No focal hepatic lesion or biliary ductal dilatation is present. The gallbladder is unremarkable with no evidence of radiopaque gallstones, gallbladder wall thickening, or obvious pericholecystic inflammatory changes. PANCREAS: Unremarkable. SPLEEN: Unremarkable. ADRENAL GLANDS: Unremarkable. KIDNEYS AND URETERS: The kidneys are normal in size. Lobular contours are likely due to lobulation. Multiple parenchymal calcifications in the region of the renal pyramids which raise the possibility of early medullary nephrocalcinosis. A 2 mm nonobstructing calculus is present within the left upper renal pole. A 8 mm cyst is suspected in the anterior cortex of the interpolar region of the right kidney which is too small to characterize. No hydronephrosis or hydroureter. No perinephric stranding. BLADDER: Unremarkable. GASTROINTESTINAL TRACT: Stomach, small bowel, and colon are normal in caliber. There is wall thickening and pericolonic fat stranding at the ascending colon, concerning for colitis. No evidence of perforation. No pneumatosis or intraperitoneal free fluid. The transverse, descending, sigmoid colon are normal in appearance. Appendix appears normal. ABDOMINAL WALL: No hernias. Scar tissue from prior surgeries are noted in the anterior abdominal wall LYMPH NODES: Normal. VASCULAR: Unremarkable. PELVIC VISCERA: The uterus and adnexa are unremarkable. OSSEOUS STRUCTURES: Minimal osteoarthritis in the hips and SI joints. No acute osseous findings. IMPRESSION: 1. Wall thickening and pericolonic fat stranding at the ascending colon, concerning for an acute focal colitis. 2. Numerous small, calcifications of the renal pyramids raising the possibility of early medullary nephrocalcinosis. Nonobstructing renal calculi are also suspected, measuring up to 2 mm in diameter. No evidence of obstructive uropathy. Assessment & Plan Assessment & Plan (1) Kidney stones: Code(s): N20.0 - Calculus of kidney Category: Medical (2) Nephrocalcinosis: Code(s): E83.59 - Other disorders of calcium metabolism; N29 - Other disorders of kidney and ureter in diseases classified elsewhere Category: Medical (3) Abdominal pain: Code(s): R10.9 - Unspecified abdominal pain Category: Medical Plan 24 hr urine, monitor kidneys Orders: Orders AMB Urinalysis Automated 07/12/24 Z13.9 - Encounter for screening, unspecified Patient Instructions: The patient had an opportunity to ask questions regarding treatment plan. The patient expressed understanding and agreement with the above treatment plan. The patient is aware they should contact our office by phone for worsening of their current condition or the appearance of new symptoms. Compliance is encouraged with any medications and followup testing that is ordered. It is a privilege to be allowed the opportunity to participate in the urologic care of your patient. If you have any questions or concerns regarding treatment for the above conditions please do not hesitate to contact me. The office telephone contact is [phone]. This note is constructed in part using voice recognition software. While every effort has been made to ensure accuracy tax examining technician errors may have been included. Yours sincerely, Rafat Diaz MD Coding Level of Care Code Est Pt Level 3 (53854) Diagnoses Kidney stones N20.0 Nephrocalcinosis E83.59; N29 Abdominal pain R10.9
== END 2024-07-12 14:34 | disposition home or self-care (01) ==
PROVIDERS: Visit Provider Urology
DX: N20.0 Calculus of kidney (principal); E83.59 Other disorders of calcium metabolism; N29 Other disorders of kidney and ureter in diseases classified elsewhere; R10.9 Unspecified abdominal pain
CPT/HCPCS: 99213

== ENCOUNTER → 2024-07-12 14:00 | Outpatient (BNVA) | payer OTHER, MEDICAID, SELFPAY | PROVIDERS: Visit Provider Urology | DX: N20.0 Calculus of kidney (principal); E83.59 Other disorders of calcium metabolism; N29 Other disorders of kidney and ureter in diseases classified elsewhere; R10.9 Unspecified abdominal pain | CPT/HCPCS: 81003 ==

== ENCOUNTER 2024-09-18 12:07 | Emergency (ER) | payer OTHER, MEDICAID, SELFPAY ==
--- NOTE | ~2024-09-18 | CT_ITS ---
CLINICAL HISTORY: left flank pain CT ABDOMEN AND PELVIS WITHOUT CONTRAST Comparison: CT/SR - CT ABDOMEN PELVIS WO IV CON - 06/18/23 23:29 EDT Findings: The lung bases are clear. Bilateral nephrocalcinosis. Multiple bilateral intrarenal calculi measuring 2-3 mm. No hydronephrosis or significant perinephric edema. No acute abnormalities in the remaining unenhanced solid organs, gallbladder or abdominal aorta. No bowel obstruction, pneumoperitoneum, or pneumatosis. Appendix is not identified with certainty. No significant inflammatory changes are seen in its expected location. There are nonspecific shotty mesenteric lymph nodes in the right lower quadrant. CT appearance of the uterus and ovaries unremarkable. No free fluid. Urinary bladder unremarkable. Multiple pelvic phleboliths. No acute fracture. IMPRESSION: 1. No acute obstructive uropathy. 2. Bilateral nephrocalcinosis and nonobstructing nephrolithiasis. 3. No obstructive or acute inflammatory changes in the gastrointestinal tract. This document has been electronically signed by: Magaly Shah DO on 09/18/2024 16:10:40
[2024-09-18 12:19] VITALS: BP 133/69; PULSE 75; RESP 20; TEMP 36.7; O2SAT 98; BMI 29.2
--- NOTE | 2024-09-18 12:25 | ED_ITS ---
HPI - General Adult General Chief complaint: Abdominal Pain Stated complaint: back pain Time Seen by Provider: 09/18/24 14:25 History of Present Illness ED Provider: Liss ESCAMILLA narrative: The patient is a 38-year-old female who comes for evaluation of pain that she feels in her left lower back. It radiates to her left groin and about senior care down the back of her left leg. She says that 2 days ago she did some lifting and she thought she might have hurt her back. The symptoms got worse today and she came to the emergency room. No fever, sweats, chills. No dysuria, urgency, or frequency. The patient has a etonorgestrel implant for control. The patient says that she has a history of intrarenal kidney stones. She does not know if she is actually have her had a symptomatic kidney stone however. Related Data Home Medications ?Medication ?Instructions ?Recorded ?Confirmed escitalopram oxalate 5 mg tablet 5 mg PO DAILY 01/12/24 03/11/24 etonogestrel 68 mg subdermal subdermal 01/12/24 03/11/24 implant (Nexplanon) Previous Rx's ?Medication ?Instructions ?Recorded acetaminophen 500 mg tablet 1,000 mg (2 x 500 mg) PO Q6H PRN 01/02/24 (Tylenol Extra Strength) fever or pain #20 tabs pyridoxine (vitamin B6) 100 mg 100 mg PO DAILY #90 tabs 03/11/24 tablet cyclobenzaprine 10 mg tablet 10 mg PO TID PRN muscle spasm #14 09/18/24 tabs Allergies Allergy/AdvReac Type Severity Reaction Status Date / Time ibuprofen Allergy Unknown Verified 09/18/24 12:22 tramadol Allergy Unknown Verified 09/18/24 12:22 Review of Systems 2 Review of Systems: Yes all other systems are reviewed and are negative PMFSH Past Medical History Medical History Hx of tendinitis H/O nephrolithotomy with removal of calculi Kidney stones Surgical History Hx of wisdom tooth extraction History of carpal tunnel repair Hx of appendectomy Hx of section Social History Social History Patient Tobacco Use Status: Never used Tobacco Substance Use Type: Marijuana Advance Directives: No Advance Directives Information Provided: No Do you have a plan to hurt others: No Plan Physical Exam ED Vital Signs: Vital Signs - 24 hr 09/18/24 12:19 09/18/24 15:18 09/18/24 16:40 Temperature 98.1 F 98.9 F 98.4 F Pulse Rate 75 75 66 Respiratory Rate 20 20 20 Blood Pressure 133/69 121/82 128/59 L Pulse Oximetry 98 98 100 Oxygen Delivery Method Room Air Room Air Room Air BMI result Body Mass Index 29.2 Const Other: The patient is awake, alert, pleasant, cooperative. She does not appear acutely toxic but she does seem uncomfortable when she moves around. HENMT Other: Face is symmetrical. Mucous membranes moist. Eyes General: appearance normal, both eyes and all related structures Neck Other: Moving her neck easily Resp Effort & Inspection: normal respiratory effort Auscultation: clear to auscultation bilaterally Cardio Rate: regular rate Rhythm: regular rhythm Heart sounds: S1 normal heart sound present and S2 normal heart sound present GI Other: I did not appreciate any definite abdominal tenderness. Possibly some slight left lower quadrant tenderness but no rebound or guarding. Back/Spine/Pelvis Other: No CVA percussion tenderness. There is tenderness in the musculature of the left lower back near the posterior superior iliac spine. Skin Other: Skin is dry and unremarkable Neuro Other: The patient is awake and alert with a normal mental status. Cranial nerves are intact. She moves her extremities with normal strength and sensation. She has a normal gait. She moves around very stiffly as if movement is uncomfortable however. Extrem Other: No peripheral edema. She has a positive straight leg raise test and a positive contralateral straight leg raise test. Course Course Course Narrative: RME, this is a rapid medical exam performed by Kieran Pizano please refer to primary provider for complete H&P- 38-year-old female presents for evaluation of left flank pain. She was seen at urgent care 2 days ago. She was given muscle relaxers which have not improved her symptoms. She states she was told to get it seen in the ER for symptoms do not improve. Plan for labs, urinalysis and CT scan of the abdomen pelvis Medications Administered Discontinued Medications Generic Name Dose Route Start Last Admin Trade Name Tiffanie PRN Reason Stop Dose Admin Acetaminophen 975 mg 09/18/24 16:33 09/18/24 16:47 Acetaminophen 325 Mg Tablet PO 09/18/24 16:34 975 mg ONCE ONE Administration Cyclobenzaprine HCl 10 mg 09/18/24 16:33 09/18/24 16:47 Cyclobenzaprine Hcl 10 Mg Tablet PO 09/18/24 16:34 10 mg ONCE ONE Administration Ketorolac Tromethamine 30 mg 09/18/24 14:34 09/18/24 15:06 Ketorolac Tromethamine 30 Mg/Ml Vial IM 09/18/24 14:35 30 mg ONCE ONE Administration Medical Decision Making Medical Decision Making [facility] Narrative: The patient is a 38-year-old female who presents for evaluation of left-sided back pain. She indicates her left flank. To some degree the pain may radiate to the left lower quadrant but it also seems to radiate down the leg. She has a history of known intrarenal stones but as far as she knows she has never passed a ureteral stone. No symptoms of a urinary tract infection. Her urinalysis showed 2+ blood and 11-20 red cells. No sign of infection. CT scan of the abdomen and pelvis shows intrarenal stones but no ureteral stone or alternate pathology. Clinically I think the patient probably is having acute musculoskeletal pain with some sciatic features. She will be treated with cyclobenzaprine and acetaminophen. Lab Data 09/18/24 12:40 09/18/24 12:40 Labs: Lab Results 09/18/24 Range/Units 12:40 WBC 7.2 (4.8-10.8) X10*3/uL RBC 4.02 L (4.20-5.50) X10*6/uL Hgb 12.8 (12.0-16.0) g/dl Hct 37.5 (37.0-47.0) % MCV 93.3 (80.0-98.0) fL MCH 31.8 (27.0-33.0) pg MCHC 34.1 (31.0-35.0) g/dl RDW 13.2 (11.0-16.0) % Plt Count 282 (160-400) X10*3/uL MPV 9.9 (9.4-12.3) fL Immature Gran % (Auto) 0.1 (0.0-0.4) % Neut % (Auto) 54.5 (45-73) % Lymph % (Auto) 25.2 (20-40) % [place] % (Auto) 10.6 (2-11) % Eos % (Auto) 8.8 H (0-4) % Baso % (Auto) 0.8 (0-2) % Lymph # (Auto) 1.8 (1.2-4.9) X10*3/uL [place] # (Auto) 0.8 (0.1-1.2) X10*3/uL Eos # (Auto) 0.6 H (0.0-0.4) X10*3/uL Baso # (Auto) 0.1 (0.0-0.2) X10*3/uL Abs Immat Gran (auto) 0.01 (0.00-0.03) X10*3/uL Absolute Neuts (auto) 3.9 (2.0-8.3) x10*3/uL Absolute Nucleated RBC 0.000 (0.0-0.012) X10*3/uL Nucleated RBC % (auto) 0.0 (0.0-0.2) /100WBC Sodium 139 (135-145) mmol/L Potassium 4.4 (3.3-5.1) mmol/L Chloride 108 (96-108) mmol/L Carbon Dioxide 26 (22-29) mmol/L Anion Gap 9 L (12-20) BUN 9 (9-16) mg/dL Creatinine 0.64 (0.5-1.4) mg/dL Estim Creat Clear Calc 101.3 Estimated GFR > 60 Random Glucose 87 (60-115) mg/dL Calcium 9.3 (8.4-10.2) mg/dL Total Bilirubin 0.3 (0.0-1.0) mg/dL AST 23 (5-31) U/L ALT 16 (0-31) U/L Alkaline Phosphatase 63 (39-117) U/L Total Protein 7.5 (6.5-8.0) g/dL Albumin 4.2 (3.5-5.0) g/dL Lipase 37 (8-78) U/L Beta HCG, Quant < 2 mIU/mL Urine Color Yellow Urine Appearance Clear Urine pH 6.5 (5.0-9.0) Ur Specific [place] 1.020 (1.005-1.025) Urine Protein Negative (Neg-Trace) mg/dL Urine Glucose (UA) Negative (Negative) mg/dL Urine Ketones Negative (Negative) mg/dL Urine Blood Moderate (2+) H (Negative) Urine Nitrite Negative (Negative) Ur Leukocyte Esterase Negative (Negative) Urine RBC 11-20 H (0-2) /HPF Urine WBC 0-5 (0-5) /HPF Ur Squamous Epith Cells 0-2 (0-2) /HPF Urine Bacteria None Seen (None Seen) Hyaline Casts 0-2 (0-2) /LPF Discharge Plan Discharge Clinical Impression: Low back pain radiating to left leg Patient Disposition: Home, Self-Care Instructions: Sciatica (ED) Additional Instructions: I think the pain you were experiencing is musculoskeletal back pain. You seem to have some features of a syndrome we call sciatica. Please try to rest and take it easy today and tomorrow. Avoid lifting or bending. You may use acetaminophen (Tylenol) as needed for pain. Take 2 extra-strength acetaminophen at a time up to 3 times per day. I have also sent a prescription for a muscle relaxant medication called cyclobenzaprine that you may use in addition. You should not drive on this medication because it can be sedating. Please continue your efforts to get a primary care doctor. You have been given the contact information for the local primary care office here at the hospital. Please call them tomorrow to try to set up a new appointment. Return to the emergency room if significantly worse. Prescriptions: New cyclobenzaprine 10 mg tablet 10 mg PO TID PRN (Reason: muscle spasm) Qty: 14 0RF No Action acetaminophen [Tylenol Extra Strength] 500 mg tablet 1,000 mg PO Q6H PRN (Reason: fever or pain) Qty: 20 0RF escitalopram oxalate 5 mg tablet 5 mg PO DAILY Nexplanon 68 mg implant subdermal pyridoxine (vitamin B6) 100 mg tablet 100 mg PO DAILY Qty: 90 3RF Referrals: [facility] [Provider Group] Stand Alone Forms: Work/School Release Interventions: ED Discharge Assessment Last Done: 09/18/24 16:50 Discharge Date/Time: 09/18/24 16:50 Print Language: Arabic
[2024-09-18 12:45] LABS: MANUAL DIFF FLAG NO
[2024-09-18 12:48] LABS: Appearance Urine Clear; Color Urine Yellow; Glucose Urine UA Negative (Negative); Leukocyte Esterase Urine Negative (Negative); Nitrite Urine Negative (Negative); PH 6.5 (5.0-9.0); UMIC TRIGGER UACC YES; Urine Blood Moderate (2+) (Negative); Urine Ketones Negative (Negative); Urine Protein Negative (Neg-Trace)
[2024-09-18 12:49] LABS: Basophils Absolute Auto 0.1 X10*3/uL (0.0-0.2); Basophils Percent Auto 0.8 % (0-2); Eosinophils Absolute Auto 0.6 X10*3/uL (0.0-0.4); Eosinophils Percent Auto 8.8 % (0-4); Hematocrit 37.5 % (37.0-47.0); Hemoglobin 12.8 g/dl (12.0-16.0); Imm Gran Abs Auto 0.01 X10*3/uL (0.00-0.03); Imm Gran Pct Auto 0.1 % (0.0-0.4); Lymphocytes Absolute Auto 1.8 X10*3/uL (1.2-4.9); Lymphocytes Percent Auto 25.2 % (20-40); Mean Corpuscular HGB Conc 34.1 g/dl (31.0-35.0); Mean Corpuscular Hemoglobin 31.8 pg (27.0-33.0); Mean Corpuscular Volume 93.3 fL (80.0-98.0); Mean Platelet Volume 9.9 fL (9.4-12.3); Monocytes Absolute Auto 0.8 X10*3/uL (0.1-1.2); Monocytes Percent Auto 10.6 % (2-11); Neutrophils Absolute Auto 3.9 x10*3/uL (2.0-8.3); Neutrophils Percent Auto 54.5 % (45-73); Platelet Count 282 X10*3/uL (160-400); Red Blood Count 4.02 X10*6/uL (4.20-5.50); Red Cell Distribution Width 13.2 % (11.0-16.0); White Blood Count 7.2 X10*3/uL (4.8-10.8)
[2024-09-18 12:50] LABS: Bacteria Urine None Seen (None Seen); Hyaline Casts Urine 0-2 /LPF (0-2); Squamous Epithelial Cell Urine 0-2 /HPF (0-2); WBC Urine 0-5 /HPF (0-5)
[2024-09-18 13:03] LABS: Alanine Aminotransferase 16 U/L (0-31); Albumin Level 4.2 g/dL (3.5-5.0); Alkaline Phosphatase 63 U/L (39-117); Anion Gap 9 (12-20); Aspartate Amino Transferase 23 U/L (5-31); Bilirubin Total 0.3 mg/dL (0.0-1.0); Blood Urea Nitrogen 9 mg/dL (9-16); Calcium 9.3 mg/dL (8.4-10.2); Carbon Dioxide 26 mmol/L (22-29); Chloride 108 mmol/L (96-108); Creatinine Clr Calc Pharmacy 101.3; Estimated Glomerular Filt Rate > 60; Glucose Random 87 mg/dL (60-115); Lipase 37 U/L (8-78); Potassium 4.4 mmol/L (3.3-5.1); Sodium 139 mmol/L (135-145); Total Protein 7.5 g/dL (6.5-8.0)
[2024-09-18 14:40] LABS: HCG Quantitative < 2 mIU/mL
[2024-09-18] MEDS: Ketorolac Tromethamine 30 MG/ML VIAL IM (15:06)
[2024-09-18 15:18] VITALS: BP 121/82; PULSE 75; RESP 20; TEMP 37.2; O2SAT 98
[2024-09-18 16:40] VITALS: BP 128/59; PULSE 66; RESP 20; TEMP 36.9; O2SAT 100
[2024-09-18] MEDS: Cyclobenzaprine HCl 10 MG TABLET PO (16:47)
[2024-09-18] MEDS: Acetaminophen 325 MG TABLET 975 MG PO (16:47)
[2024-09-18 16:50] VITALS: BP 128/59; PULSE 66; RESP 20; TEMP 36.9; O2SAT 100
== END 2024-09-18 16:50 | disposition home or self-care (01) ==
PROVIDERS: Physician Assistant; Emergency Provider Emergency Medicine
DX: M54.42 Lumbago with sciatica, left side (principal); F12.90 Cannabis use, unspecified, uncomplicated; Z87.442 Personal history of urinary calculi; R10.2 Pelvic and perineal pain
CPT/HCPCS: 36415; 74176; 80053; 81001; 83690; 84702; 85025; 96372; 99283; 99284; J1885

== ENCOUNTER → 2024-09-18 12:26 | Outpatient (BNV) | payer OTHER, MEDICAID, SELFPAY | PROVIDERS: Emergency Provider Emergency Medicine; Visit Provider Radiology Diagnostic Radiology | DX: R10.30 Lower abdominal pain, unspecified (principal) | CPT/HCPCS: 74176 ==

== ENCOUNTER 2024-10-09 13:59 | Emergency (ER) | payer OTHER, MEDICAID, SELFPAY ==
[2024-10-09 14:08] VITALS: BP 120/81; PULSE 92; RESP 18; TEMP 37; O2SAT 98; BMI 28.5
--- NOTE | 2024-10-09 14:14 | ED.GENADULT ---
HPI - General Adult General Chief complaint: General Medical Stated complaint: Headache Etc Time Seen by Provider: 10/09/24 17:20 Source: patient, RN notes reviewed and old records reviewed Mode of arrival: ambulatory Limitations: no limitations History of Present Illness ED Provider: Shantelle HPI narrative: Patient is a 38-year-old female presenting to the emergency department with complaint of headache, body aches, sore throat and cough since Monday. Denies any abdominal pain, vomiting, diarrhea. Does endorse nausea/decreased appetite. Daughter is sick with similar symptoms and was tested yesterday but patient does not have those results yet. complaint: body aches Onset (ago): day(s) Treatments prior to arrival: none Related Data Home Medications ?Medication ?Instructions ?Recorded ?Confirmed escitalopram oxalate 5 mg tablet 5 mg PO DAILY 01/12/24 03/11/24 etonogestrel 68 mg subdermal subdermal 01/12/24 03/11/24 implant (Nexplanon) Previous Rx's ?Medication ?Instructions ?Recorded acetaminophen 500 mg tablet 1,000 mg (2 x 500 mg) PO Q6H PRN 01/02/24 (Tylenol Extra Strength) fever or pain #20 tabs pyridoxine (vitamin B6) 100 mg 100 mg PO DAILY #90 tabs 03/11/24 tablet cyclobenzaprine 10 mg tablet 10 mg PO TID PRN muscle spasm #14 09/18/24 tabs ondansetron 4 mg disintegrating 4 mg PO Q8H PRN nausea and 10/09/24 tablet vomiting #10 tabs Allergies Allergy/AdvReac Type Severity Reaction Status Date / Time ibuprofen Allergy Unknown Verified 10/09/24 14:10 tramadol Allergy Unknown Verified 10/09/24 14:10 Review of Systems Review of Systems: As per HPI Yes all other systems are reviewed and are negative Constitutional: Constitutional: Reports as per HPI PMFSH Past Medical History Medical History Hx of tendinitis H/O nephrolithotomy with removal of calculi Kidney stones Surgical History Hx of wisdom tooth extraction History of carpal tunnel repair Hx of appendectomy Hx of section Social History Social History Patient Tobacco Use Status: Never used Tobacco Substance Use Type: Marijuana Physical Exam ED Vital Signs: Vital Signs - 24 hr 10/09/24 14:08 Temperature 98.6 F Pulse Rate 92 Respiratory Rate 18 Blood Pressure 120/81 Pulse Oximetry 98 Oxygen Delivery Method Room Air BMI result Body Mass Index 28.5 Vital signs have been reviewed and appear to be correct. Blood pressure normal. Heart rate normal. Respiratory rate normal. Temperature normal. Oxygen saturation normal. Const General: cooperative, healthy appearing and no acute distress Orientation/consciousness: oriented to person, oriented to place, oriented to time and patient oriented x3 Limitations: no limitations HENMT Head: Yes normocephalic and Yes atraumatic Ears: external ears normal, TM's normal bilaterally and EAC's normal General nose exam: Normal external nose present and Normal nasal mucous membranes and turbinates present Face and sinus: Yes sinuses nontender and Yes face symmetric Mouth: Normal oral and palatal mucosa present, lip normal, tongue normal, oropharynx normal and moist mucous membranes Throat: Yes posterior oropharynx normal, Yes tonsils normal, Yes uvula midline and No uvular edema Eyes Pupils: Equal, round and reactive pupils present Neck Neck: Yes normal visual inspection, Yes no lymphadenopathy and Yes supple Resp Effort & Inspection: normal respiratory effort and able to speak in complete sentences Auscultation: clear to auscultation bilaterally Cardio Rate: regular rate Rhythm: regular rhythm Heart sounds: S1 normal heart sound present and S2 normal heart sound present GI Palpation (GI): Soft to palpation and nontender Auscultation: normoactive bowel sounds General: Yes no CVA tenderness Back/Spine/Pelvis Back: no CVA tenderness Skin General skin exam: elasticity normal and turgor normal Neuro General: oriented to person, oriented to place, oriented to time, patient oriented x3, moves all extremities, no focal motor deficits and CN's II-XI intact bilaterally Cranial nerves: Yes Equal, round and reactive pupils present Cognition (Neuro): normal cognition Extrem General: Yes full ROM, Yes no pedal edema and Yes no calf tenderness Psych Mental Status: mental status grossly normal Affect: normal affect Thought process: Normal thought process present Course Course Course Narrative: This is a rapid medical exam performed by Car Pepper NP: Additional HPI, ROS, PE not included below will be deferred to primary provider. Patient is a 38-year-old female presenting to the emergency department with complaint of headache, body aches, sore throat and cough since Monday. Denies any abdominal pain, nausea, vomiting, diarrhea. Plan: Viral and strep swabs Medical Decision Making Medical Decision Making [facility] Narrative: Patient is a 38-year-old female presenting to the emergency department with complaint of headache, body aches, sore throat and cough since Monday. Denies any abdominal pain, nausea, vomiting, diarrhea. On exam patient is awake, A+Ox3, VS WNL, afebrile, normal neurological exam without focal deficits, physical exam findings as above. Given reported symptoms and physical exam findings, initial differential includes but is not limited to viral illness, COVID, flu, RSV, strep pharyngitis. Viral serology positive for influenza A. Patient updated on results and all questions answered. Advised adequate rest, adequate fluid intake, Tylenol and ibuprofen as needed for fever or discomfort, nasal saline spray. Will send prescription for Zofran for nausea. Follow up with PCP as needed. Return precautions discussed. Patient verbalized understanding of and agreement with plan. Differential Diagnosis Differential Diagnoses: The differential diagnosis associated with the presentation includes As per [facility] Lab Data [facility] Lab Attestation statement: I reviewed the patient's lab results. As per [facility] Labs: Lab Results 10/09/24 Range/Units 14:59 Influenza Type A (PCR) POSITIVE A (Negative) Influenza Type B (PCR) NEGATIVE (Negative) RSV RNA Qual (PCR) NEGATIVE (Negative) SARS-CoV-2 RNA (RT-PCR) NEGATIVE (Negative) S. pyogenes GrpA NEVA Negative (Negative) External Record Review External record reviewed: Inpatient record, Office record and Outpatient record Prescription Management I considered prescription management with: Other Discharge Plan Discharge Clinical Impression: Influenza A Patient Disposition: Home, Self-Care Instructions: Influenza (DC), Flu Shot (Vaccine) for Adults (ED), Droplet Precautions (ED) Additional Instructions: You were evaluated in the emergency department today for sore throat, body aches and cough. Your flu test was positive. You should isolate at home for another 2 days and continue to wear a mask while symptomatic after that. Your symptoms should resolve over time with rest and fluids. You can take 650 mg Tylenol or 600 mg ibuprofen every 6 hours as needed for fever or pain. We also recommend that you use over the counter nasal saline spray. Please follow-up with your primary care provider for any ongoing symptoms. Return to the emergency department if you develop worsening pain, fever not controlled with Tylenol and ibuprofen, chest pain, dizziness or lightheadedness, or any other concerning symptoms. Prescriptions: New ondansetron 4 mg tablet,disintegrating 4 mg PO Q8H PRN (Reason: nausea and vomiting) Qty: 10 0RF No Action acetaminophen [Tylenol Extra Strength] 500 mg tablet 1,000 mg PO Q6H PRN (Reason: fever or pain) Qty: 20 0RF cyclobenzaprine 10 mg tablet 10 mg PO TID PRN (Reason: muscle spasm) Qty: 14 0RF escitalopram oxalate 5 mg tablet 5 mg PO DAILY Nexplanon 68 mg implant subdermal pyridoxine (vitamin B6) 100 mg tablet 100 mg PO DAILY Qty: 90 3RF Stand Alone Forms: Work/School Release Print Language: Kinyarwanda
[2024-10-09 15:20] LABS: IDNOW Serial# 58CA691E; Strep A Nucleic Acid Negative (Negative)
[2024-10-09 16:21] LABS: Influenza A PCR POSITIVE (Negative); Influenza B PCR NEGATIVE (Negative); Resp Syncy Virus RNA Qual PCR NEGATIVE (Negative); SARS COV2 PCR INHOUSE NEGATIVE (Negative)
[2024-10-09 17:30] VITALS: BP 146/93; PULSE 94; RESP 18; TEMP 36.3; O2SAT 98
== END 2024-10-09 17:30 | disposition home or self-care (01) ==
PROVIDERS: Registered Nurse Emergency; Emergency Provider Emergency Medicine Emergency Medical Services
DX: J10.1 Influenza due to other identified influenza virus with other respiratory manifestations (principal); R51.9 Headache, unspecified; M79.10 Myalgia, unspecified site; R05.9 Cough, unspecified; R11.0 Nausea; Z03.818 Encounter for observation for suspected exposure to other biological agents ruled out
CPT/HCPCS: 0241U; 87651; 99282; 99283

== ENCOUNTER 2025-02-07 07:50 | Outpatient (AMB) | payer OTHER, MEDICAID, SELFPAY ==
--- OUTSIDE RECORDS SUMMARY | 2025-02-07 07:52 | XMS_ITS | Data Portability ---
Author Organization [facility], [facility] Address [address] [place] [id number] Care Team Providers Care Coater Operator Insulation Board Name Role Phone EDUARDA VILLANUEVA Referring Provider [phone] MATI CARLOS Primary Care Provider SHAAN DOAN Urologist Assessment Encounter Date Assessment Date Assessment LastModified by Organization Details LastModified Time 08/07/2023 08/07/2023 37F with long history of kidney stones. [email or web address] Not available 08/07/2023 14:35:05 Plan of Treatment Reminders Order Date Submit Date Provider Last Modified By Organization Details Last Modified Time Details Appointments None recorde d. Lab urinaly sis, dipstic k, auto 023 08/07/20 23 [email or web address] [facility], [address], [facility], [place], [address], 3 17:18:10 culture , urine 023 08/07/20 23 STEW [facility], [address] [facility] [address], [address], 3 10:07:38 Referral None recorde d. Procedures None recorde d. Surgeries None recorde d. Imaging None recorde d. Medication Orders None recorde d. Patient TargetsNo targets recorded. Patient Instructions Encounter Date Encounter Id Patient Instructions Last Modified By Organization Details Last Modified Time 08/07/2023 [id number] kidney stone: care instructions Not available 08/07/2023 17:18:08 learning about diet for kidney stone prevention [email or web address] Not available 08/07/2023 17:18:08 Reason for Referral None Reported. Results Created Date Observation Date Name Description Value Unit Range Abnormal Flag Note LastModifiedBy Organization Detail LastModifiedTime 08/07/2008/08/2023 URINE CULTU RE, ROUTI NE urine culture, routine Final report Not Available [facility] ([facility]) [address] [facility], [place], [address], 08/09/2023 10:07:38 08/07/20 23 08/08/2023 URINE CULTU RE, ROUTI NE result 1 COMMEN T Cultu re shows less than 10,00 0 colon y formi ng units of bacte anabelle per lcau liter of urine . This colon y count is not gener ally consi dered to be clini leobardo signi fican t. Not Available [facility] ([facility]) [address] [facility], [place], [address], 08/09/2023 10:07:38 08/07/20 23 08/07/2023 urina lysis , dipst ick, auto Unknown Analyte Negati ve Not Available [facility] - [address], [address], 08/07/2023 14:09:32 08/07/20 23 08/07/2023 urina lysis , dipst ick, auto Unknown Analyte negati ve Not Available [facility] - [address], [address], 08/07/2023 14:09:32 08/07/20 23 08/07/2023 urina lysis , dipst ick, auto Unknown Analyte Negati ve Not Available [facility] - [address], [address], 08/07/2023 14:09:32 08/07/20 23 08/07/2023 urina lysis , dipst ick, auto Unknown Analyte 7.5 Not Available [facility] [address], [address], 08/07/2023 14:09:32 08/07/20 23 08/07/2023 urina lysis , dipst ick, auto Unknown Analyte 1+ Not Available [facility] [address], [address], 08/07/2023 14:09:32 08/07/20 23 08/07/2023 urina lysis , dipst ick, auto Unknown Analyte 1.010 Not Available [facility] [address], [address], 08/07/2023 14:09:32 08/07/20 23 08/07/2023 urina lysis , dipst ick, auto Unknown Analyte Negati ve Not Available [facility] - [address], [address], 08/07/2023 14:09:32 08/07/20 23 08/07/2023 urina lysis , dipst ick, auto Unknown Analyte Negati ve Not Available [facility] - [address], [address], 08/07/2023 14:09:32 08/07/20 23 08/07/2023 urina lysis , dipst ick, auto Unknown Analyte Negati ve Not Available [facility] - [address], [address], 08/07/2023 14:09:32 Result Notes None recorded. Problems Name Problem SNOMED Code Status Onset Date Resolution Date Notes Provider Name and Address Organization Details Recorded Time Asthma 991016928 Active 2017 Saige vega [place] - [facility]. 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 3 14:05:12 Low back pain 835612818 Active 2017 Eryl MacConnel l null, [facility] 3 14:05:12 Migraine 08834752 Active 2017 Eryl MacConnel l null, [facility] 3 14:05:12 Tendinitis of wrist 601722778 Active 2017 Eryl MacConnel l [facility], [facility] 3 14:05:12 History of calculus of kidney 621000031 Active 2017 Eryl MacConnel l [facility], [facility] 3 14:05:12 Problem Notes None recorded. Procedures Surgical History Date Name Laterality Status Provider Name and Address Organization Details Recorded Time [facility]ripsy [facility]/07[facility]2023 14:07:22 [facility] 14:07:42 [facility] Tunnel [facility] 08/07/2023 14:07:56 append[facility] 08/07/2023 14:08:05 removal of sebaceous cyst [facility] 08/07/2023 14:08:41 Imaging Results None recorded. Procedure Notes None recorded. Medical Equipment None Reported. Allergies Allergen ID Allergen Name Allergen Category Reaction Reaction Severity Criticality Documentation Date Start Date Code Code System Note Provider Name and Address Organization Details Recorded Time 316890 ibuprofen medicatio n nausea Not available Not available 08/07/2023 5640 RxNorm Eryl MacConnel l null, [facility] 3 14:05:03 527838 tramadol medicatio n abdominal pain Not available Not available 08/07/2023 45246 RxNorm Eryl Rusty vega [place] - [facility]. 3 14:05:03 Medications Name Sig Start Date Stop Date Status Note LastModified by Organization Details LastModified Time metronidazo le 500 mg tablet TAKE 1 TABLET BY MOUTH TWICE A DAY FOR 14 DAYS active Not Available Not Available No t Available acetaminoph en 500 mg tablet TAKE 2 TABLETS BY MOUTH EVERY 6 HOURS NEEDED FOR FEVER OR PAIN active Not Available Not Available No t Available ondansetron 8 mg disintegrat ing tablet PLACE 1 TABLET TWICE A DAY BY TRANSLING UAL ROUTE NEEDED FOR 15 DAYS active Not Available Not Available No t Available trazodone 100 mg tablet TAKE 1 TABLET BY MOUTH EVERY DAY AT BEDTIME NEEDED X 90 DAYS active Not Available Not Available No t Available trazodone 150 mg tablet 08/07 completed Not Available Not Available Not Available hydroxyzine HCl 25 mg tablet 08/07 completed Not Available Not Available Not Available pyridoxine (vitamin B6) 100 mg tablet TAKE 1 TABLET BY MOUTH EVERY DAY *NOT COVERED active Not Available Not Available No t Available prednisone 5 mg tablets in a dose pack FOLLOW PACKAGE DIRECTION S 08/07 completed Not Available Not Available Not Available morphine 15 mg immediate release tablet TAKE 1 TABLET BY MOUTH 3 TIMES DAILY NEEDED FOR PAIN. 08/07 completed Not Available Not Available Not Available ondansetron 4 mg disintegrat ing tablet DISSOLVE 1 TABLET BY MOUTH EVERY 8 HOURS NEEDED FOR NAUSEA AND VOMITING. 08/07 completed Not Available Not Available Not Available sertraline 50 mg tablet 08/07 completed Not Available Not Available Not Available doxycycline hyclate 100 mg tablet TAKE 1 TABLET BY MOUTH EVERY 12 HOURS FOR 14 DAYS active Not Available Not Available No t Available naproxen 500 mg tablet TAKE 1 TABLET BY MOUTH TWICE A DAY FOR 30 DAYS active Not Available Not Available No t Available amoxicillin 875 mg-potassiu m clavulanate 125 mg tablet TAKE 1 TABLET BY MOUTH TWICE DAILY FOR 7 DAYS 08/07 completed Not Available Not Available Not Available oxycodone 5 mg tablet TAKE 1 TABLET BY MOUTH EVERY 6 HOURS NEEDED FOR PAIN active Not Available Not Available No t Available escitalopra m 5 mg tablet TAKE 1 TABLET BY MOUTH EVERY DAY active Not Available Not Available No t Available BinaxNOW COVID-19 Ag Self Test kit Use as Directed on the Package 08/07 completed Not Available Not Available Not Available Suflave 178.7 gram-7.3 gram-0.5 gram oral solution TAKE DIRECTED BY MOUTH BEFORE COLONOSCO PY 1 DAYS active Not Available Not Available No t Available Vitals Date Recorded Body height Body mass index (BMI) Body weight Provider Name and Address Organization Details Last Updated DateTime 08/07/2023 152.4 cm 29.3 kg/m2 75530.86 g Saige CruzJoanne [facility] 08/07/2023 14:04:54 Social History Question Answer Notes LastModified by Organizat ion Details LastModified Time Tobacco Smoking Status Never Smoker Lisandronatalia CruzJoanne [facility] 08/07/2023 14:07:01 Are You Blind Or Do You Have Difficulty Seeing? No Information not available 08/07/2023 What Is Your Level Of Caffeine Consumption? Moderate Information not available 08/07/2023 Are You Deaf Or Do You Have Serious Difficulty Hearing? No Information not available 08/07/2023 What Was The Date Of Your Most Recent Tobacco Screening? 08/07/2023 Information not available 08/07/2023 Have You Ever Been Counseled For Unhealthy Alcohol Use? No Information not available 08/07/2023 Has Tobacco Cessation Counseling Been Provided? No Information not available 08/07/2023 Sex: Unknown Functional Status Question Answer Note LastModified by Organizat ion Details LastModified Time Do you use any illicit or recreational drugs? No Information not available 08/07/2023 Do you or have you ever used any other forms of tobacco or nicotine? No Information not available 08/07/2023 What is your level of alcohol consumption? Occasional Information not available 08/07/2023 Are you able to care for yourself? Yes Information n ot available 08/07/2023 Mental Status None recorded. Family History Nothing Reported. Medical History No medical history recorded. Gynecological HistoryNo gynecological history recorded. Obstetrics History GPAL:G 0 P 0 0 0 0 Immunizations Vaccine Type Date Status Note Provider Anderson summers and Address Organization Details Recorded Time Influenza, MDCK, quadrivalent, preservative 9 completed Saige vega [place] - [facility] 08/07/2023 14:05:19 Past Encounters Encounter ID Performer Location Encounter Start Date Encounter Closed Date Diagnosis/Indication Diagnosis SNOMED-CT Code Diagnosis ICD10 Code Diagnosis Note [id number] Shaan Doan MD [facility] [address],[facility] [address] [place] [address] 08/07/2023 13:34:19 08/07/2023 15:11:07 Kidney stone 34845608 N20.0 2 mm L upper pole kidney stone.Othe r tiny stones bilaterall y.No need for treatment at this point in time.She does have evidence of medullary nephrocalc inosisBase d on AUA Guidelines , we did review general recommenda tions for stone prevention in the office today. These include:1) Excellent fluid intake (at least 64 oz of mostly water) to achieve a urine volume of at least 2.5 liters daily2) avoidance of excessive salt (no more than 2500 mg/d)3) avoidance of excessive animal protein (no more than 8-9 ounces daily)4) incorporat ion of citrus into fluids (lemon or ruby juice)5) maintenanc e of normal dairy intake1 year follow up with renal ultrasound prior. Health Concerns Section Related Observation LastModified by Organization Detai ls LastModified Time None Recorded Concern Status LastModified by Organization Details LastModified Time None Recorded Advance Directives Directive None Recorded Payers Encounter Date Sequence Insurance Name Policy Number Policy Smyth Covered Member ID Smyth Member ID Guarantor Name 08/07/2023 1 [employer] (POS) [id number] S Tan [id number] [address] Notes Date Note Type Note Provider Name and Address Organization Details Recorded Time 08/07/2023 text/html 37F referred for kidney stones.She used to see Dr. Li.She recently had a CT scan at [place].This showed bilateral kidney stones.Largest stone is 2 mm in the L upper pole.There is likely evidence of medullary nephrocalcinosis. She lives in [place].She presents with his sister.They are originally from [place].5 kids. 23, 21, 18, 12 and 7. Shaan Doan MD [address] [place] [address], [phone], [facility]. 08/07/2023 17:18:40 OBGyn Episode No OBEpisode recorded.
--- NOTE | 2025-02-07 07:55 | A.OFFVIS_ITS ---
Intake Visit Reasons: 7m/CT/[facility] Intake Note: Patient is present for 7m follow up/CT/[facility] * Abdomen/Pelvis CT 09/18/24 Urology Medication: VITAMIN B6 Antibiotic Allergy: NONE Blood Thinner: NONE Flight Operations Engineer Required: No Allergies ibuprofen Allergy (Verified 02/17/25 12:50) Unknown tramadol Allergy (Verified 02/07/25 08:10) Unknown HPI Comments Details: 02/07/25--Belle is here for follow up, telehealth visit. She has a history of kidney stones, Currently she is asymptomatic. I reviewed previous CT scan. Will cont to monitor Results--09/18/24--1. No acute obstructive uropathy. 2. Bilateral nephrocalcinosis and nonobstructing nephrolithiasis. 07/12/24--Reviewed 24 hr urine Repeat 24 hr urine in 6 months, CT stone protocol fu in 7 months 02/20/24--Belle is here as a new patient evaluation. She was seen in the emergency room for abdominal pain. She has a history of kidney stones, she states she has had prior kidney stone procedures. She describes 2 procedures where a stent was placed and the most recent 1 was the shockwave lithotripsy. The patient states she has been instructed to drink a lot of water add lemon to her fluids and avoid green leafy vegetables as well as limited use of red meat. She states her 1st kidney stone was at age 15. She also has had frequent UTIs however the last UTI she had was about a year ago. In review of her chart a CT abdomen and pelvis performed 06/18/2023 noted bilateral parenchymal calcifications, nephrocalcinosis- suggestive of medullary sponge kidney. I have discussed checking a 24 hour urine collection and repeat CT KUB. Will prescribed vitamin B6 daily [facility] Medical History Hx of tendinitis H/O nephrolithotomy with removal of calculi Kidney stones Surgical History Hx of wisdom tooth extraction History of carpal tunnel repair Hx of appendectomy Hx of section Social History Patient Tobacco Use Status: Never used Tobacco Substance Use Type: Marijuana Advance Directives: No Advance Directives Information Provided: No Patient : No Female Reproductive History Menstrual Age of Menarche: 8 Review of Systems Const All systems reviewed & are unremarkable except as noted in HPI and below Reports no additional complaints Eyes Reports no additional complaints ENT Reports no additional complaints Card Reports no additional complaints Resp Reports no additional complaints GI Reports no additional complaints Reports as per HPI Musc Reports no additional complaints Skin/Breast Reports system reviewed and no additional complaints, except as documented Neuro Reports no additional complaints Psych Reports no additional complaints Endo Reports no additional complaints Naeem/Lymph Reports no additional complaints Aller/Immun Reports no additional complaints Telehealth Telehealth Telehealth Platform: Telephone Location of provider rendering services: practice address Location of patient: address on file Patient Identification confirmed using: Name, : Yes Telehealth method: voice only Patient verbally consented to treatment: Yes Patient verbally consented to billing insurance company: Yes Patient informed of any privacy concerns related to visit: Yes Minutes spent on Phone/Video with Pt.: 13 Results Reviewed Results Reviewed: Date of Service: 09/18/24 CLINICAL HISTORY: left flank pain CT ABDOMEN AND PELVIS WITHOUT CONTRAST Comparison: CT/SR - CT ABDOMEN PELVIS WO IV CON - 06/18/23 23:29 EDT Findings: The lung bases are clear. Bilateral nephrocalcinosis. Multiple bilateral intrarenal calculi measuring 2-3 mm. No hydronephrosis or significant perinephric edema. No acute abnormalities in the remaining unenhanced solid organs, gallbladder or abdominal aorta. No bowel obstruction, pneumoperitoneum, or pneumatosis. Appendix is not identified with certainty. No significant inflammatory changes are seen in its expected location. There are nonspecific shotty mesenteric lymph nodes in the right lower quadrant. CT appearance of the uterus and ovaries unremarkable. No free fluid. Urinary bladder unremarkable. Multiple pelvic phleboliths. No acute fracture. IMPRESSION: 1. No acute obstructive uropathy. 2. Bilateral nephrocalcinosis and nonobstructing nephrolithiasis. 3. No obstructive or acute inflammatory changes in the gastrointestinal tract. Date of Service: 06/18/23 CT ABDOMEN AND PELVIS WITHOUT CONTRAST CLINICAL INFORMATION: Right flank pain. COMPARISON: None available. TECHNIQUE: Multidetector volumetric imaging was performed from the superior aspect of the liver through the pubic symphysis. Sagittal and coronal reformatted images were obtained on the technologist's workstation. This CT examination was performed using dose optimization techniques as appropriate, variously including the following: *Automated exposure control *Adjustment of mA and/or kV according to patient size (this includes techniques or standardized protocols for targeted exams where dose is matched to indication/reason for exam; i.e. extremities or head) *Use of iterative reconstruction technique DLP: 490 mGy-cm FINDINGS: LUNG BASES: Minimal dependent atelectasis. LIVER, GALLBLADDER, AND BILIARY TREE: The liver is normal in size, shape, and attenuation. No focal hepatic lesion or biliary ductal dilatation is present. The gallbladder is unremarkable with no evidence of radiopaque gallstones, gallbladder wall thickening, or obvious pericholecystic inflammatory changes. PANCREAS: Unremarkable. SPLEEN: Unremarkable. ADRENAL GLANDS: Unremarkable. KIDNEYS AND URETERS: The kidneys are normal in size. Lobular contours are likely due to lobulation. Multiple parenchymal calcifications in the region of the renal pyramids which raise the possibility of early medullary nephrocalcinosis. A 2 mm nonobstructing calculus is present within the left upper renal pole. A 8 mm cyst is suspected in the anterior cortex of the interpolar region of the right kidney which is too small to characterize. No hydronephrosis or hydroureter. No perinephric stranding. BLADDER: Unremarkable. GASTROINTESTINAL TRACT: Stomach, small bowel, and colon are normal in caliber. There is wall thickening and pericolonic fat stranding at the ascending colon, concerning for colitis. No evidence of perforation. No pneumatosis or intraperitoneal free fluid. The transverse, descending, sigmoid colon are normal in appearance. Appendix appears normal. ABDOMINAL WALL: No hernias. Scar tissue from prior surgeries are noted in the anterior abdominal wall LYMPH NODES: Normal. VASCULAR: Unremarkable. PELVIC VISCERA: The uterus and adnexa are unremarkable. OSSEOUS STRUCTURES: Minimal osteoarthritis in the hips and SI joints. No acute osseous findings. IMPRESSION: 1. Wall thickening and pericolonic fat stranding at the ascending colon, concerning for an acute focal colitis. 2. Numerous small, calcifications of the renal pyramids raising the possibility of early medullary nephrocalcinosis. Nonobstructing renal calculi are also suspected, measuring up to 2 mm in diameter. No evidence of obstructive uropathy. Assessment & Plan Assessment & Plan (1) Kidney stones: Code(s): N20.0 - Calculus of kidney Category: Medical (2) Nephrocalcinosis: Code(s): E83.59 - Other disorders of calcium metabolism; N29 - Other disorders of kidney and ureter in diseases classified elsewhere Category: Medical Plan Cont to monitor kidneys Patient Instructions: The patient had an opportunity to ask questions regarding treatment plan. The patient expressed understanding and agreement with the above treatment plan. The patient is aware they should contact our office by phone for worsening of their current condition or the appearance of new symptoms. Compliance is encouraged with any medications and followup testing that is ordered. It is a privilege to be allowed the opportunity to participate in the urologic care of your patient. If you have any questions or concerns regarding treatment for the above conditions please do not hesitate to contact me. The office telephone contact is [phone]. This note is constructed in part using voice recognition software. While every effort has been made to ensure accuracy data security coordinator errors may have been included. Yours sincerely, Rafat Diaz MD Coding Level of Care Code Tele Est Pt Level 3 (00351) Diagnoses Kidney stones N20.0 Nephrocalcinosis E83.59; N29
== END 2025-02-07 13:56 | disposition home or self-care (01) ==
LOC: HO.HUSH 07:50
PROVIDERS: Visit Provider Urology
DX: E83.59 Other disorders of calcium metabolism (principal); N29 Other disorders of kidney and ureter in diseases classified elsewhere
CPT/HCPCS: 98013

== ENCOUNTER 2025-02-17 12:16 | Emergency (ER) | payer OTHER, MEDICAID, SELFPAY ==
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
[2025-02-17 12:44] VITALS: BP 137/96; PULSE 88; RESP 18; TEMP 36.9; O2SAT 97; BMI 27.9
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
[2025-02-17] MEDS: 0.9 % Sodium Chloride 1,000 ML 999 ML IV (15:29)
[2025-02-17] MEDS: Metoclopramide HCl 10 MG/2 ML VIAL 5 MG IVPUSH (15:29)
[2025-02-17] MEDS: diphenhydrAMINE HCL 50 MG/ML VIAL 12.5 MG IVPUSH (15:30)
[2025-02-17] MEDS: diazePAM 10 MG/2 ML CARTRIDGE 2.5 MG IVPUSH (15:30)
[2025-02-17 15:56] VITALS: BP 141/93; PULSE 70; RESP 18; O2SAT 99
--- OUTSIDE RECORDS SUMMARY | 2025-02-17 16:40 | XMS_ITS | Data Portability ---
Author Organization [facility] Meteor, svmg_admin Address [address] [place] [id number] Care Team Providers Care Supervising Deputy Name Role Phone EDUARDA VILLANUEVA Referring Provider MATI CARLOS Primary Care Provider [phone] SHAAN DOAN Urologist Assessment Encounter Date Assessment Date Assessment LastModified by Organization Details LastModified Time 08/07/2023 08/07/2023 37F with long history of kidney stones. [email or web address] Not available 08/07/2023 14:35:05 Plan of Treatment Reminders Order Date Submit Date Provider Last Modified By Organization Details Last Modified Time Details Appointments None recorde d. Lab urinaly sis, dipstic k, auto 023 08/07/20 23 [email or web address] [facility] [place], [address], [facility] [address], [place], [address], 3 17:18:10 culture , urine 023 08/07/20 23 STEW [facility], [address] [facility] [address], [place], [address], 3 10:07:38 Referral None recorde d. Procedures None recorde d. Surgeries None recorde d. Imaging None recorde d. Medication Orders None recorde d. Patient TargetsNo targets recorded. Patient Instructions Encounter Date Encounter Id Patient Instructions Last Modified By Organization Details Last Modified Time 08/07/2023 [id number] kidney stone: care instructions [email or web address] Not available 08/07/2023 17:18:08 learning about diet for kidney stone prevention Not available 08/07/2023 17:18:08 Reason for Referral None Reported. Results Created Date Observation Date Name Description Value Unit Range Abnormal Flag Note LastModifiedBy Organization Detail LastModifiedTime 08/07/2008/08/2023 URINE CULTU RE, ROUTI NE urine culture, routine Final report Not Available [facility] ([facility]) [address] [facility], [place], [address], 08/09/2023 10:07:38 08/07/20 23 08/08/2023 URINE CULTU RE, ROUTI NE result 1 COMMEN T Cultu re shows less than 10,00 0 colon y formi ng units of bacte anabelle per clau liter of urine . This colon y count is not gener ally consi dered to be clini leobardo signi fican t. Not Available [facility] ([facility]) [address] [facility], [place], [address], 08/09/2023 10:07:38 08/07/20 23 08/07/2023 urina lysis , dipst ick, auto Unknown Analyte Negati ve Not Available [facility] - [address], [address], 08/07/2023 14:09:32 08/07/20 23 08/07/2023 urina lysis , dipst ick, auto Unknown Analyte negati ve Not Available [facility] - [address], [address], 08/07/2023 14:09:32 08/07/20 23 08/07/2023 urina lysis , dipst ick, auto Unknown Analyte Negati ve Not Available [facility] - [address], [address], 08/07/2023 14:09:32 08/07/20 23 08/07/2023 urina lysis , dipst ick, auto Unknown Analyte 7.5 Not Available [facility] [address], [address], 08/07/2023 14:09:32 08/07/20 23 08/07/2023 urina lysis , dipst ick, auto Unknown Analyte 1+ Not Available [facility] [address], [address], 08/07/2023 14:09:32 08/07/20 23 08/07/2023 urina lysis , dipst ick, auto Unknown Analyte 1.010 Not Available [facility] [address], [address], 08/07/2023 14:09:32 08/07/20 23 08/07/2023 urina lysis , dipst ick, auto Unknown Analyte Negati ve Not Available [facility] - [address], [address], 08/07/2023 14:09:32 08/07/20 23 08/07/2023 urina lysis , dipst ick, auto Unknown Analyte Negati ve Not Available [facility] - [address], [address], 08/07/2023 14:09:32 08/07/20 23 08/07/2023 urina lysis , dipst ick, auto Unknown Analyte Negati ve Not Available [facility] - [address], [address], 08/07/2023 14:09:32 Result Notes None recorded. Problems Name Problem SNOMED Code Status Onset Date Resolution Date Notes Provider Name and Address Organization Details Recorded Time Asthma 108479489 Active 2017 Saige vega [place] - [facility]. 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 3 14:05:12 Low back pain 944455814 Active 2017 Eryl MacConnel l null, [facility] 3 14:05:12 Migraine 40942942 Active 2017 Eryl MacConnel l null, [facility] 3 14:05:12 Tendinitis of wrist 063229753 Active 2017 Eryl MacConnel l [facility], [facility] 3 14:05:12 History of calculus of kidney 986667477 Active 2017 Eryl MacConnel l [facility], [facility] 3 14:05:12 Problem Notes None recorded. Procedures Surgical History Date Name Laterality Status Provider Name and Address Organization Details Recorded Time [facility] 14[facility]07[facility]22 [facility] 14:07:42 [facility]07[facility]23 14:07:56 [facility] 08/07[facility]2023 14:08:05 [facility] sebaceous [facility] 08/07/2023 14:08:41 Imaging Results None recorded. Procedure Notes None recorded. Medical Equipment None Reported. Allergies Allergen ID Allergen Name Allergen Category Reaction Reaction Severity Criticality Documentation Date Start Date Code Code System Note Provider Name and Address Organization Details Recorded Time 137962 ibuprofen medicatio n nausea Not available Not available 08/07/2023 5640 RxNorm Eryl MacConnel l null, [facility] 3 14:05:03 421433 tramadol medicatio n abdominal pain Not available Not available 08/07/2023 11485 RxNorm Eryl Rusty vega [place] - [facility]. 3 14:05:03 Medications Name Sig Start Date [...] Updated DateTime 08/07/2023 152.4 cm 29.3 kg/m2 45253.86 g Saige CruzJoanne [facility] 08/07/2023 14:04:54 Social History Question Answer Notes LastModified by Organizat ion Details LastModified Time Tobacco Smoking Status Never Smoker Lisandronatalia CruzJoanne [facility] 08/07/2023 14:07:01 Are You Blind Or [...] preservative 9 completed Saige vega [place] - [facility] 08/07/2023 14:05:19 Past Encounters Encounter ID Performer Location Encounter Start Date Encounter Closed Date Diagnosis/Indication Diagnosis SNOMED-CT Code Diagnosis ICD10 Code Diagnosis Note [id number] Shaan Doan MD [facility] [place] [address],[facility] [address] [place] [address] 08/07/2023 13:34:19 08/07/2023 15:11:07 Kidney stone [id number] N20.0 2 mm L upper pole kidney [...] ion of citrus into fluids (lemon or [place] juice)5) maintenanc e of normal dairy intake1 [...] ID Guarantor Name 08/07/2023 1 [employer] (POS) [id number] S Tan [id number] [address] [place] Notes Date Note Type Note Provider Name and Address Organization Details Recorded Time 08/07/2023 text/html 37F referred for kidney stones.She used to see Dr. Li.She recently had a CT scan at [place].This showed bilateral kidney stones.Largest stone is 2 mm in the L upper pole.There is likely evidence of medullary nephrocalcinosis. She lives in [place].She presents with his sister.They are originally from [place].5 kids. 22, 21, 18, 12 and 7. Shaan Doan MD [address] [place] [address], [address], [facility]. 08/07/2023 17:18:40 OBGyn Episode No OBEpisode recorded.
[2025-02-17 17:06] VITALS: BP 105/64; PULSE 86; RESP 16; TEMP 36.8; O2SAT 100
--- NOTE | 2025-02-17 17:13 | PC.NURSE ---
attempted to give nurse to nurse report to [facility], no answer, called patient placement, this department also called ED with no answer, advised to call back in a few minutes
[2025-02-17 17:15] VITALS: BP 105/64; PULSE 86; RESP 16; TEMP 36.8; O2SAT 100
--- NOTE | 2025-02-17 17:45 | PC.NURSE ---
second attempt to give nurse to nurse report to [facility] ED at [phone], no answer
--- NOTE | 2025-02-17 18:03 | PC.NURSE ---
third attempt to call [facility] for RN to RN report with no answer
== END 2025-02-17 17:28 | disposition other institution (70) ==
PROVIDERS: Emergency Provider Emergency Medicine
DX: S06.6X0A Traumatic subarachnoid hemorrhage without loss of consciousness, initial encounter (principal); M54.2 Cervicalgia; R11.0 Nausea; R51.9 Headache, unspecified; X58.XXXA Exposure to other specified factors, initial encounter; Y29.XXXA Contact with blunt object, undetermined intent, initial encounter; Y93.H2 Activity, gardening and landscaping; Y92.007 Garden or yard of unspecified non-institutional (private) residence as the place of occurrence of the external cause; Y99.8 Other external cause status; Z79.899 Other long term (current) drug therapy
CPT/HCPCS: 70450; 70486; 96374; 96375; 99284; 99285; J1200; J2765; J3360

== ENCOUNTER → 2025-02-17 12:50 | Outpatient (BNV) | payer OTHER, MEDICAID, SELFPAY | PROVIDERS: Emergency Provider Emergency Medicine; Visit Provider Radiology Diagnostic Radiology | DX: S09.90XA Unspecified injury of head, initial encounter (principal); S06.6X0A Traumatic subarachnoid hemorrhage without loss of consciousness, initial encounter | CPT/HCPCS: 70450; 70486 ==